=== PATIENT | female | born 1945 | race African-American/Black ===

== ENCOUNTER 2025-07-01 10:59 | Outpatient (AMB) | payer MEDICARE, SELFPAY ==
--- OUTSIDE RECORDS SUMMARY | 2025-06-29 14:16 | XMS_ITS | Encounter Summary ---
Author Organization [facility] Address [address] [place] [address] Care Team Providers Care Cad Drafter Name Role Phone Paola Walsh MD Primary Care Provider [phone] Reason for Referral * Consultation (Routine) - Authorized Specialty Diagnoses / Procedures Referred By Quincy singh Referred To Contact Cardiology Diagnoses Shortness of breath Nimesh Yeh MD [address] [place] [address] Phone: tel: fax: [facility] [address] [facility] [address] [place] [address] Phone: tel: fax: Referral ID Status Reason Start Date Expiration Date Visits Requested Visits Authorized [id number] Authorized Specialty Services Required 06/30/2026 1 1 Reason for Visit * Reason Comments Shortness of Breath Encounter Details Date Type Department Care Team ([facility] st Contact Info) Description 06/29/2025 2:16 PM EST - 06/30/2025 2:55 AM EST Emergency [facility] Emergency [address] [place] [id number] Ernestina Zheng MD [address] [place] [address] Nimesh Yeh MD [address] [place] [phone] Shortness of breath (Primary Dx); Moderate persistent asthma with exacerbation; Chronic cough; Itching sensation of throat; Globus sensation; SOWMYA (obstructive sleep apnea); Elevated troponin; COPD exacerbation ([facility] V24, [facility] V28) Discharge Disposition: Home or Self Care Social History Tobacco Use Types Packs/Day Years Used Date Smoking Tobacco: Never Smokeless Tobacco: Never Alcohol Use Standard Drinks/Week Comments No 0 (1 standard drink = 0.6 oz pur e alcohol) Housing Instability Answer Date Recorde d Are you worried that in the next 2 months you may not have stable housing? No 04/29/2025 Food Access & Nutrition Answer Date Rec orded Do you have access to a vari ety of food including fruits and vegetables? Yes 04/29/2025 Access to Healthcare Answer Date Record ed Within the last 3 months, sasha larios many times did you visit the emergency department for your medical care? 2 04/29/2025 Health Literacy Answer Date Recorded How often do you need to hav e someone help you when you read instructions, pamphlets, or other written material from your doctor or pharmacy? Sometimes 04/29/2025 Caregiver: How often do you need to have someone help you when you read instructions, pamphlets, or other written material from your doctor or pharmacy? Not on file 04/29/2025 Financial Risk Answer Date Recorded How hard is it for you to pa y for the very basics like food, housing, medical care, and air conditioning / heating? Not very hard 04/29/2025 Transportation Answer Date Recorded Has the lack of transportati on kept you from meetings, work, or from getting things needed for daily living? No Has the lack of transportati on kept you from medical appointments or from getting medications? No 04/29/2025 Social Isolation Answer Date Recorded How often do you feel lonely or isolated from th ose around you? Never 04/29/2025 Food Risk Answer Date Recorded Within the past 12 months we worried whether our food would run out before we got money to buy more. Never true 04/29/2025 Within the past 12 months th e food we bought just didn't last and we didn't have money to get more. Never true 04/29/2025 Dependent Care Answer Date Recorded Do you need help finding or paying for care for your loved ones. For example, child advocate or elderly care for an older adult? No 04/29/2025 Education Answer Date Recorded Do you think completing more education or training, like finishing a GED, going to college, or learning a trade, would be helpful for you? N/A 04/29/2025 Employment and Income Answer Date Recor ded During the last four weeks, have you been actively looking for work? No 04/29/2025 Living Situation Answer Date Recorded What is your living situation? Unrecognized valu e 04/29/2025 Comments No Sex and Gender Information Value Date Recorded Sex Assigned at Not on file Legal Sex Female 11:58 PM EST Gender Identity Not on file Sexual Orientation Not on file documented as of this encounter Last Filed Vital Signs Vital Sign Reading Time Taken Comments Blood Pressure 137/77 06/30/2025 2:41 AM EST Pulse 79 06/30/2025 2:41 AM EST Temperature 36.8 C (98.3 F) 06/30/2025 2:41 AM EST Respiratory Rate 20 06/30/2025 2:41 AM EST Oxygen Saturation 99% 06/30/2025 2:41 AM EST Inhaled Oxygen Concentration - - Weight 77.1 kg (170 lb) 06/29/2025 2:13 PM EST Height 152.4 cm (5') 06/29/2025 2:13 PM EST Body Mass Index 33.2 06/29/2025 2:13 PM EST documented in this encounter Discharge Instructions * Discharge Instructions* Nimesh Yeh MD - 06/30/2025 1:10 AM EST Has follow-up with cardiology for management and evaluation of your elevated cardiac enzymes. * Attachments The following attachments cannot be sent through Care Everywhere. * Avoiding COPD Triggers: Video (Indian) * Asthma: General Info (Indian) * Cough (Indian) documented in this encounter Medications at Time of Discharge albuterol HFA (PROAIR HFA ; PROVENTIL HFA ; VENTOLIN HFA) 90 mcg/actuation inhaler INHALE 2 PUFFS BY MOUTH 4 TIMES A DAY NEEDED FOR COUGHING OR WHEEZING 18 g 11 04/29/2025 azithromycin (ZITHROMAX) 250 mg tablet Take 2 tablets (500 mg total) by mouth 1 (one) time each day for 1 day, THEN 1 tablet (250 mg total) 1 (one) time each day for 4 days. 6 each 06/30/2025 5 cholecalciferol (VITAMIN D-3) 50 mcg (2,000 unit) tablet 2,000 Units. 03/08/2011 cyanocobalamin, vitamin B-12, 1,000 mcg capsule Take 1,000 mg by mouth daily. fluticasone propionate (FLONASE) 50 mcg/actuation nasal spray Administer 1 spray into each nostril 1 (one) time each day. Shake gently. Before first use, prime pump. After use, clean tip and replace cap. 16 g 06/30/2025 5 hydroCHLOROthiaz chidi 12.5 mg tablet Take 1 tablet (12.5 mg total) by mouth 1 (one) time each day. 90 each 3 04/30/2025 latanoprost (XALATAN) 0.005 % ophthalmic solution Place 1 Drop into both eyes 2 times daily. 05/17/2021 levothyroxine (SYNTHROID, LEVOTHROID) 50 mcg tablet Take 1 tablet (50 mcg total) by mouth 1 (one) time each day. 90 tablet 2 05/21/2025 magnesium oxide 400 mg magnesium capsule Take 1 capsule by mouth 1 (one) time each day. 90 capsule 3 05/21/2025 omega-3 acid ethyl esters (LOVAZA) 1 gram capsule Take 1,000 mg by mouth daily. predniSONE (DELTASONE) 20 mg tablet Take 1 tablet (20 mg total) by mouth 2 (two) times a day for 4 days. See instructions. 8 tablet 06/30/2025 5 Rocklatan 0.02-0.005 % drops PLACE 1 DROP IN EACH EYE AT BEDTIME 05/22/2025 rosuvastatin (CRESTOR) 10 mg tablet Take 1 tablet (10 mg total) by mouth at bedtime. 90 tablet 1 04/02/2025 timolol (TIMOPTIC) 0.5 % ophthalmic solution INSTILL ONE DROP INTO THE RIGHT EYE IN THE MORNING 06/10/2025 valsartan (DIOVAN) 320 mg tablet Take 1 tablet (320 mg total) by mouth 1 (one) time each day. 90 tablet 3 05/21/2025 Wixela Inhub 250-50 mcg/dose diskus inhaler INHALE ONE PUFF BY MOUTH TWICE A DAY 60 each 07/01/2025 documented as of this encounter Ordered Prescriptions Prescription Sig Dispense Quantity Refills Last Filled Start Date End Date fluticasone propionate (FLONASE) 50 mcg/actuation nasal spray Administer 1 spray into each nostril 1 (one) time each day. Shake gently. Before first use, prime pump. After use, clean tip and replace cap. 16 g 06/30/2025 5 predniSONE (DELTASONE) 20 mg tablet Take 1 tablet (20 mg total) by mouth 2 (two) times a day for 4 days. See instructions. 8 tablet 06/30/2025 5 azithromycin (ZITHROMAX) 250 mg tablet Take 2 tablets (500 mg total) by mouth 1 (one) time each day for 1 day, THEN 1 tablet (250 mg total) 1 (one) time each day for 4 days. 6 each 06/30/2025 5 documented in this encounter Discharge Disposition Disposition Code Departure Means Destination Comment s Home or Self Care documented in this encounter Progress Notes * Nimesh Yeh MD - 06/30/2025 1:17 AM EST ED Course as of 06/30/25 0117 Mon Jun 29, 2025 1533 12-Lead ECG 06/29/25 14:17:43 on my read NSR, regular, rate 81, normal intervals, no EVER/D, non-specific T wavechanges, compared to 03/20/25 no significant change [RG] 1647 XR Chest 1 View On my read no consolidations, effusions, or edema read by radiology as IMPRESSION: FINDINGS/IMPRESSION: Stable cardiomediastinal contours. No consolidation or congestive heart failure. Postsurgical changes right shoulder. [RG] 1647 Per RN pt with improved wheezing after first neb but increased secretions and coughing after second, she will hold nebs. Ordered glycopyrrolate, protonix [RG] 1711 Patient updated and re-evaluated, she has some ongoing wheezing although improved. She states hard to determine if coughing/mucus was due to nebulizer or coincidental as she has been having these episodes. Discussed switching to just albuterol as she uses at home, she would like to try duoneb she already has. RN updated. [RG] 1951 Respiratory virus panel molecular study Negative [RG] 1951 TROPONIN I, HIGH SENSITIVITY(!): 92 Elevated, new, will trend [RG] 1951 Basic Metabolic Panel (BMP) WNL [RG] 1951 CBC(!) WNL [RG] 2008 RN requested pt evaluation due to episodes of patient feeling more short of breath and worse coughing as well as severe itching in throat, requesting benadryl which was ordered. In to see patient who shakes her head when asked about symptoms, daughter at bedside states she is having trouble breathing, RN states she placed on 2L NC for comfort, has not had any hypoxia. Began to auscultate to re-evaluate wheezing when pt suddenly states she could not breathe and grasping her throat, shook her head when asked to describe how she was feeling, there was no apnea or change in mental status, O2sat remained normal, episode resolved within a minute, pt's lung sounds have improved significantly. Had extensive discussion with patient and her daughter about elevated trop, plan to trend, need forhospitalization given elevated trop and episodes, will add CT soft tissue neck due to feeling of blockage, possible etiologies of symptoms, possible role of post-nasal drip, anxiety/panic attacks, laryngospasm. Ordered CT soft tissue neck, tessalon pearles, hydroxyzine, and robaxin. [RG] 2051 Patient signed out to Dr. Yeh pending additional evaluation, BP management, plan for admission. [RG] 2207 CT soft tissue neck with contrast Comparison: None provided Findings: The visualized intracranial contents are unremarkable. No prevertebral fluid. Epiglottis is within normal limits. Pharyngeal mucosal space and parapharyngeal fat are normal. Salivary glands are within normal limits. No sialoliths. Multinodular goiter. Visualized lung apices are clear. No acute fractures. IMPRESSION: Multinodular goiter. This document has been electronically signed by: Keisha Chadwick MD on 06/29/2025 21:16:34 [JL] 2313 Reassessed patient and she appears to be better slightly better long discussion with daughter which her symptoms seem to be exacerbation of postnasal drip. She has had extensive workup with pulmonology she states she has not been taking her antihistamine. Although this troponin elevation is new for her. She does have a history of questionable pulmonary hypertension but no prior history of troponin elevation. She has no chest pain per se and her EKG she has no significant changes. She has normal renal function. [JL] 2314 2nd troponin is trending down. Will repeat. And obtain BNP, possible 2ndary to atrial stretch of Pulm HTN [JL] 2315 Given IV hydralzaine for BP control [JL] 2315 Symptoms have been going on for quite a while. And she has had a ENT workup as well. Which didnot show anything she has not had a swallow study. [JL] 2359 Troponin remains elevated despite a negative BNP and also normal renal function. Will admit for observation trend troponin possible echocardiogram this may represent part of her pulmonary hypertension. EKG was did not show any significant ischemic changes. [JL] e Jun 30, 2025 0023 Discussed the case with cardiology Dr. Daniel feels the troponin is not not necessarily concerning for NSTEMI given her clinical picture. Will obtain a D- dimer hopefully this will be negative when age-adjusted at this point do not think she is a candidate for anticoagulation given her history of intraparenchymal hemorrhage. [JL] 0105 Age adjusted ddimer =390. Likely negateive pt will be d/c'd home with close cardiology followup [JL] 0107 Symptoms seem to be related to postnasal drip she is ambulating well now without any desaturations. Will start her on a short course of steroids. Will give her Flonase as well and have her follow-up with cardiology. [JL] ED Course User Index [JL] Nimesh Yeh MD [RG] Ernestina Zheng MD Clinical Impressions as of 06/30/25 0117 Shortness of breath Moderate persistent asthma with exacerbation Chronic cough Itching sensation of throat Globus sensation SOWMYA (obstructive sleep apnea) Elevated troponin COPD exacerbation (CMS/HCC V24, CMS/HCC V28) Discharge 1. Shortness of breath 2. Moderate persistent asthma with exacerbation 3. Chronic cough 4. Itching sensation of throat 5. Globus sensation 6. SOWMYA (obstructive sleep apnea) 7. Elevated troponin 8. COPD exacerbation ([facility] V24, [facility] V28) Procedures * Edilma Hunter RN - 06/29/2025 4:19 PM EST Pt medicated per OCT - started to have very coarse cough after 2nd breathing treatment. Provider made aware. LS are coarse throughout, mucous is whitish / yellow on assessment. Pt sat 100% on RA, Pt feels as though the phlegm is stuck in her thraot, voice is horse - Pt states throat is sore post coughing episode. Pt BP 178/96, pulse 90, RR 20, Sat 100% RA * Alem Ga RN - 06/29/2025 2:09 PM EST Pt to ED reports sorethroat, cough and difficulty breathing,. Reports has gotten worse over last 2 days. Pt reports fee;ls as if needs to get phlegm up but unable to do so * Ernestina Zheng MD - 06/29/2025 2:05 PM EST HPI Chief Complaint Patient presents with Shortness of Breath Patient with history, per PCP note 05/21/25 of parietal IPH, HTN, HLD, COPD, hypothyroidism, left kidney mass, spinal stenosis, lumbar radiculopathy, asthma, GERD, goiter presents reporting cough, shortness of breath, sore throat, and mucus in her throat which makes her gag for years as well as itching in her throat, feeling that she is suffocating when she lies flat and sleeps. She notes she has seen ENT, research & analytics manager, and pulmonology who cannot find anything but has not seen GI. She does not feelshe has acid reflux symptoms. Patient notes that all symptoms became worse last night, she has had sleep study, was diagnosed with sleep apnea, stopped using CPAP because she felt the mask was more sim ffocating and eventually insurance took it back. Patient reports using albuterol inhaler and nebulizer as needed, no recent new or different cold or flu symptoms, chest pain, belly pain, nausea, vomiting. Daughter at bedside states pt has daily inhaler but unsure if she is using it, pt initially states she is not then clarifies she is. She also reports she had been taking allergy medication but thinks she stopped it but is unsure, has a lot of nasal congestion, chronic cough is progressively worsening. History provided by: Medical records, patient and relative staff interpreter used: No Fabricio Coma Scale Score: 15 Patient History Medical History[1] Surgical History[2] Family History[3] Social History Tobacco Use Smoking status: Never Smokeless tobacco: Never Substance Use Topics Alcohol use: No Drug use: No Review of Systems Review of Systems Physical Exam ED Triage Vitals [06/29/25 1413] Temp Heart Rate Resp BP 37 ??C (98.6 ??F) 86 20 (!) 166/105 SpO2 Temp Source Heart Rate Source Patient Position 99 % Oral -- Sitting BP Location FiO2 (%) -- -- Physical Exam Vitals and nursing note reviewed. Constitutional: General: She is not in acute distress. Appearance: Normal appearance. She is not ill-appearing. HENT: Mouth/Throat: Mouth: Mucous membranes are moist. Pharynx: Oropharynx is clear. No pharyngeal swelling, oropharyngeal exudate or posterior oropharyngeal erythema. Cardiovascular: Rate and Rhythm: Normal rate and regular rhythm. Heart sounds: Normal heart sounds. Pulmonary: Effort: Pulmonary effort is normal. No tachypnea or respiratory distress. Breath sounds: Wheezing present. Comments: Diffuse moderate to severe expiratory wheezes, mild inspiratory Abdominal: Palpations: Abdomen is soft. Tenderness: There is no abdominal tenderness. Neurological: Mental Status: She is alert. ED Course & MDM Medical Decision Making Ddx: Asthma exacerbation, GERD/esophagitis, post-nasal drip, untreated SOWMYA, viral syndrome, seasonal vs environmental allergies, less likely pneumonia, ACS, CHF, other acute pulmonary pathology Patient is chronically but not acutely ill-appearing with vitals hypertensive to 166/104 and otherwise WNL on RA on arrival and normal cardiac and abdominal exams, pulmonary exam with diffuse moderate to severe expiratory wheezes, mild inspiratory wheeze, otherwise normal, normal appearing oropharynx, moist mucus membranes. Will obtain EKG, trop, basic labs, CXR, respiratory panel. Will treat with duo-neb, IV Mg, solu-medrol. Will ambulate with pulse ox. Did consider and discuss with pt and daughter imaging of head given daughter report of ongoing headaches however pt states headache is mild,they had MRI recently, she has no new symptoms, decided together that this is necessary at this time. Per d/c summary from admission for IP, BP goal at home is 130/80 so will give dose of home valsartan and re-evaluate BP. Discussed plan, if work-up is reassuring, passes ambulation trial and wheezing resolves and she is discharged strong recommendation to get new CPAP, nasal only may be better tolerated, due to risks of untreated SOWMYA as well as evaluation by GI for possible GERD role. ED Course as of 06/29/252 SunJun 29, 2025 1533 12-Lead ECG 06/29/25 14:17:43 on my read NSR, regular, rate 81, normal intervals, no EVER/D, non-specific T wavechanges, compared to 03/20/25 no significant change [RG] 1647 XR Chest 1 View On my read no consolidations, effusions, or edema read by radiology as IMPRESSION: FINDINGS/IMPRESSION: Stable cardiomediastinal contours. No consolidation or congestive heart failure. Postsurgical changes right shoulder. [RG] 1647 Per RN pt with improved wheezing after first neb but increased secretions and coughing after second, she will hold nebs. Ordered glycopyrrolate, protonix [RG] 1711 Patient updated and re-evaluated, she has some ongoing wheezing although improved. She states hard to determine if coughing/mucus was due to nebulizer or coincidental as she has been having these episodes. Discussed switching to just albuterol as she uses at home, she would like to try duoneb she already has. RN updated. [RG] 1951 Respiratory virus panel molecular study Negative [RG] 1951 TROPONIN I, HIGH SENSITIVITY(!): 92 Elevated, new, will trend [RG] 1951 Basic Metabolic Panel (BMP) WNL [RG] 1951 CBC(!) WNL [RG] 2008 RN requested pt evaluation due to episodes of patient feeling more short of breath and worse coughing as well as severe itching in throat, requesting benadryl which was ordered. In to see patient who shakes her head when asked about symptoms, daughter at bedside states she is having trouble breathing, RN states she placed on 2L NC for comfort, has not had any hypoxia. Began to auscultate to re-evaluate wheezing when pt suddenly states she could not breathe and grasping her throat, shook her head when asked to describe how she was feeling, there was no apnea or change in mental status, O2sat remained normal, episode resolved within a minute, pt's lung sounds have improved significantly. Had extensive discussion with patient and her daughter about elevated trop, plan to trend, need forhospitalization given elevated trop and episodes, will add CT soft tissue neck due to feeling of blockage, possible etiologies of symptoms, possible role of post-nasal drip, anxiety/panic attacks, laryngospasm. Ordered CT soft tissue neck, tessalon pearles, hydroxyzine, and robaxin. [RG] 2051 Patient signed out to Dr. Yeh pending additional evaluation, BP management, plan for admission. 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 Ernestina Zheng MD 06/29/252152 documented in this encounter Plan of Treatment Upcoming Encounters Date Type Department Care Team (Late st Contact Info) Description 07/24/2025 8:30 AM EST Office Visit Pulmonology - [address] [place] [phone] Angela France MD [address] [place] [address] 09/03/2025 1:00 PM EST Office Visit Internal Medicine - [place] [address] [place] [address] Paola Walsh MD [address] [place] [phone] Scheduled Referrals Name Type Priority Associated Diagnoses Order Schedule Ambulatory referral to Cardiology Outpatient Referral Routine 1 Occurrence s starting 06/30/2025 until 06/30/2026 documented as of this encounter Procedures Procedure Name Priority Date/Time Associated Diagnosis Comments D-DIMER STAT 06/30/2025 12:34 AM EST ECG ANNOTATED 06/30/2025 ECG ANNOTATED 06/30/2025 TROPONIN I HIGH SENSITIVITY STAT 06/29/2025 11:23 PM EST B-TYPE NATRIURETIC PEPTIDE STAT 06/29/2025 11:23 PM EST TROPONIN I HIGH SENSITIVITY STAT 06/29/2025 8:[address] NECK SOFT TISSUE W CONTRAST STAT 06/29/2025 8:36 PM EST RESPIRATORY VIRUS PANEL MOLECULAR STUDY STAT 06/29/2025 3:47 PM EST TROPONIN I HIGH SENSITIVITY STAT 06/29/2025 3:45 PM EST COMPLETE BLOOD COUNT STAT 06/29/2025 3:45 PM EST BASIC METABOLIC PANEL STAT 06/29/2025 3:45 PM EST XR CHEST 1 VIEW STAT 06/29/2025 3:26 PM EST ECG 12-LEAD STAT 06/29/2025 3:17 PM EST documented in this encounter Results * (ABNORMAL) D-dimer, quantitative (06/30/2025 12:34 AM EST) D-Dimer, Quant (D-DU) 327(H) <=230 ng/mL DDU LAB COAGULATION METHOD 06/30/2025 1:02 AM EST [facility] Blood Venous blood specimen / Unknown Venipuncture / Unknown 06/30/2025 12:34 AM EST 06/30/2025 12:48 AM EST Narrative [facility] - 06/30/2025 1:02 AM EST D-Dimer <230 ng/mL (D-Dimer units) is the threshold for exclusion of DVT/PE. D-Dimer may be elevated in: Critically ill, severely infected, trauma patients, DIC, acute CVA, acute FL, unstable angina, AF, old age, , and smoking. D-Dimer may be decreased with: Initiation of heparin therapy and oral anticoagulants. Nimesh Yeh MD LAB BLOOD ORDERABLES Final Result [facility] [address] [place] [address], * ECG-Annotated (06/30/2025) Provider Onbase MD ECG ORDERABLES Final Result * ECG-Annotated (06/30/2025) us Provider Onbase MD ECG ORDERABLES Final Result * B-type natriuretic peptide (06/29/2025 11:23 PM EST) BNP 86 <=100 pcg/mL LAB CHEMISTRY METHOD 06/29/2025 11:58 PM EST [facility] Blood Venous blood specimen / Unknown Venipuncture / Unknown 06/29/2025 11:23 PM EST 06/29/2025 11:27 PM EST Nimesh Yeh MD LAB BLOOD ORDERABLES Final Result [facility] [address] [place] [address], [place] [phone] * (ABNORMAL) Troponin I high sensitivity (06/29/2025 11:23 PM EST) [facility] High Sensitivity Troponin I 77(H) <=54 ng/L LAB CHEMISTRY METHOD 06/29/2025 11:49 PM EST [facility] Blood Venous blood specimen / Unknown Venipuncture / Unknown 06/29/2025 11:23 PM EST 06/29/2025 11:27 PM EST Narrative [facility] - 06/29/2025 11:49 PM EST High levels of biotin in samples may falsely decrease hsTroponin values. Use caution when interpreting hsTroponin results in patients taking biotin who exhibit renal impairment (eGFR <60) or in patients taking more than 20 mg/day of biotin. Nimesh Yeh MD LAB BLOOD ORDERABLES Final Result Performing Organization Address [facility] Co de Phone Number [facility] [address] [place] [address], [place] [phone] * (ABNORMAL) Troponin I High Sensitivity (06/29/2025 8:46 PM EST) [facility] High Sensitivity Troponin I 76(H) <=54 ng/L LAB CHEMISTRY METHOD 06/29/2025 9:27 PM EST [facility] Blood Venous blood specimen / Unknown Venipuncture / Unknown 06/29/2025 8:46 PM EST 06/29/2025 8:58 PM EST Narrative [facility] - 06/29/2025 9:27 PM EST High levels of biotin in samples may falsely decrease hsTroponin values. Use caution when interpreting hsTroponin results in patients taking biotin who exhibit renal impairment (eGFR <60) or in patients taking more than 20 mg/day of biotin. us Ernestina Zheng MD LAB BLOOD ORDERABLES Final Resul t ROB [facility] ([facility]) [facility] [address] [place] [address], [place] [phone] * CT Neck Soft Tissue w Contrast (06/29/2025 8:36 PM EST) Anatomical Region Laterality Modality Head and Neck Computed Tomogra phy 06/29/2025 9:16 PM EST Impressions 06/29/2025 9:16 PM EST Multinodular goiter. This document has been electronically signed by: Keisha Chadwick MD on 06/29/2025 21:16:34 Narrative 06/29/2025 9:16 PM EST INDICATION: SOB, cough, globus sensation, eval stricture, stenosis, other acute CT soft tissue neck with contrast Comparison: None provided Findings: The visualized intracranial contents are unremarkable. No prevertebral fluid. Epiglottis is within normal limits. Pharyngeal mucosal space and parapharyngeal fat are normal. Salivary glands are within normal limits. No sialoliths. Multinodular goiter. Visualized lung apices are clear. No acute fractures. Procedure Note Keisha Chadwick MD - 06/29/2025 INDICATION: SOB, cough, globus sensation, eval stricture, stenosis, other acute CT soft tissue neck with contrast Comparison: None provided Findings: The visualized intracranial contents are unremarkable. No prevertebral fluid. Epiglottis is within normal limits. Pharyngeal mucosal space and parapharyngeal fat are normal. Salivary glands are within normal limits. No sialoliths. Multinodular goiter. Visualized lung apices are clear. No acute fractures. IMPRESSION: Multinodular goiter. This document has been electronically signed by: Keisha Chadwick MD on 06/29/2025 21:16:34 us Ernestina Zheng MD IMG CT PROCEDURES Final Result * Respiratory virus panel molecular study (06/29/2025 3:47 PM EST) [facility] Adenovirus Detection by PCR Not Detected Not Detected LAB MICROBIOLOGY METHOD 06/29/2025 5:57 PM [facility] Influenza A PCR Not Detected Not Detected LAB MICROBIOLOGY METHOD 06/29/2025 5:57 PM [facility] Influenza B PCR Not Detected Not Detected LAB MICROBIOLOGY METHOD 06/29/2025 5:57 PM [facility] Coronavirus 229E Not Detected Not Detected LAB MICROBIOLOGY METHOD 06/29/2025 5:57 PM [facility] Coronavirus HKU1 Not Detected Not Detected LAB MICROBIOLOGY METHOD 06/29/2025 5:57 PM [facility] Coronavirus OC43 Not Detected Not Detected LAB MICROBIOLOGY METHOD 06/29/2025 5:57 PM [facility] Coronavirus NL63 Not Detected Not Detected LAB MICROBIOLOGY METHOD 06/29/2025 5:57 PM [facility] Parainfluenza Virus 1 Not Detected Not Detected LAB MICROBIOLOGY METHOD 06/29/2025 5:57 PM [facility] Parainfluenza Virus 2 Not Detected Not Detected LAB MICROBIOLOGY METHOD 06/29/2025 5:57 PM [facility] Parainfluenza Virus 3 Not Detected Not Detected LAB MICROBIOLOGY METHOD 06/29/2025 5:57 PM [facility] Parainfluenza Virus 4 Not Detected Not Detected LAB MICROBIOLOGY METHOD 06/29/2025 5:57 PM [facility] RSV PCR Not Detected Not Detected LAB MICROBIOLOGY METHOD 06/29/2025 5:57 PM [facility] Human Metapneumovirus A and B Not Detected Not Detected LAB MICROBIOLOGY METHOD 06/29/2025 5:57 PM [facility] Rhinovirus/Entero virus Not Detected Not Detected LAB MICROBIOLOGY METHOD 06/29/2025 5:57 PM [facility] Bordetella pertussis Not Detected Not Detected LAB MICROBIOLOGY METHOD 06/29/2025 5:57 PM EST [facility] Bordetella parapertussis Not Detected Not Detected LAB MICROBIOLOGY METHOD 06/29/2025 5:57 PM EST [facility] Mycoplasma pneumo by PCR Not Detected Not Detected LAB MICROBIOLOGY METHOD 06/29/2025 5:57 PM [facility] Chlamydia pneumoniae Not Detected Not Detected LAB MICROBIOLOGY METHOD 06/29/2025 5:57 PM [facility] SARS COV-2 Not Detected Not Detected LAB MICROBIOLOGY METHOD 06/29/2025 5:57 PM [facility] Swab Both anterior nares / Unknown Non-blood Collection / Unknown 06/29/2025 3:47 PM EST 06/29/2025 4:51 PM EST [facility] - 06/29/2025 5:57 PM EST Testing was performed using the [employer] Respiratory Pathogen PCR Assay. All results must be correlated with the clinical findings. Results should not be used as the sole basis for diagnosis. False Negative results may occur from the presence of sequence variants in the region targeted by the assay or the presence of inhibitors. Results may be affected by concurrent antiviral/antimicrobial therapy or levels of organisms that are below the limit of detection. us Ernestina Zheng MD LAB MICROBIOLOGY - GENERAL ORDER NARESH Final Result [facility] [address] [place] [address], * Basic Metabolic Panel (BMP) (06/29/2025 3:45 PM EST) Sodium 141 133 - 145 mmol/L LAB CHEMISTRY METHOD 06/29/2025 6:03 PM [facility] Potassium 4.6 3.5 - 5.5 mmol/L LAB CHEMISTRY METHOD 06/29/2025 6:03 PM EST [facility] Comment:Hemolysis present Chloride 106 96 - 110 mmol/L LAB CHEMISTRY METHOD 06/29/2025 6:03 PM [facility] CO2 31 21 - 32 mmol/L LAB CHEMISTRY METHOD 06/29/2025 6:03 PM [facility] Anion Gap 4 3 - 11 LAB CHEMISTRY METHOD 06/29/2025 6:03 PM [facility] Glucose 83 70 - 100 mg/dL LAB CHEMISTRY METHOD 06/29/2025 6:03 PM [facility] BUN 17 5 - 25 mg/dL LAB CHEMISTRY METHOD 06/29/2025 6:03 PM [facility] Creatinine 0.81 0.50 - 1.10 mg/dL LAB CHEMISTRY METHOD 06/29/2025 6:03 PM [facility] eGFR 74 >=60 mL/min/1. 73m2 LAB CHEMISTRY METHOD 06/29/2025 6:03 PM [facility] Comment:Calculation based on the Chronic Kidney Disease Epidemiology Collaboration (CKD-EPI) equation refit without adjustment for race. BUN/Creatinine Ratio 21.0 LAB CHEMISTRY METHOD 06/29/2025 6:03 PM [facility] Calcium 9.7 8.5 - 10.5 mg/dL LAB CHEMISTRY METHOD 06/29/2025 6:03 PM [facility] Blood Venous blood specimen / Unknown Venipuncture / Unknown 06/29/2025 3:45 PM EST 06/29/2025 4:53 PM EST us Ernestina Zheng MD LAB BLOOD ORDERABLES Final Resul t [facility] [address] [place] [address], * (ABNORMAL) Troponin I High Sensitivity (06/29/2025 3:45 PM EST) High Sensitivity Troponin I 92(H) <=54 ng/L LAB CHEMISTRY METHOD 06/29/2025 5:38 PM [facility] Blood Venous blood specimen / Unknown Venipuncture / Unknown 06/29/2025 3:45 PM EST 06/29/2025 4:53 PM EST Narrative [facility] - 06/29/2025 5:38 PM EST High levels of biotin in samples may falsely decrease hsTroponin values. Use caution when interpreting hsTroponin results in patients taking biotin who exhibit renal impairment (eGFR <60) or in patients taking more than 20 mg/day of biotin. us Ernestina Zheng MD LAB BLOOD ORDERABLES Final Resul t [facility] [address] [place] [address], * (ABNORMAL) CBC (06/29/2025 3:45 PM EST) WBC 7.8 4.8 - 10.8 K/mcL LAB HEMETOLOGY METHOD 06/29/2025 5:05 PM [facility] RBC 4.60 3.80 - 4.80 M/mcL LAB HEMETOLOGY METHOD 06/29/2025 5:05 PM [facility] Hemoglobin 13.2 11.5 - 16.0 g/dL LAB HEMETOLOGY METHOD 06/29/2025 5:05 PM [facility] Hematocrit 40.1 35.0 - 47.0 % LAB HEMETOLOGY METHOD 06/29/2025 5:05 PM [facility] MCV 87.7 79.0 - 98.0 FL LAB HEMETOLOGY METHOD 06/29/2025 5:05 PM [facility] MCH 28.9 27.0 - 32.0 pcg LAB HEMETOLOGY METHOD 06/29/2025 5:05 PM [facility] MCHC 32.9 32.0 - 37.0 g/dL LAB HEMETOLOGY METHOD 06/29/2025 5:05 PM EST [facility] RDW 13.9 11.0 - 15.0 % LAB HEMETOLOGY METHOD 06/29/2025 5:05 PM EST [facility] Platelets 222 130 - 400 K/mcL LAB HEMETOLOGY METHOD 06/29/2025 5:05 PM EST [facility] MPV 12.0(H) 7.0 - 11.0 FL LAB HEMETOLOGY METHOD 06/29/2025 5:05 PM EST [facility] NRBC 0.0 <1.0 % LAB HEMETOLOGY METHOD 06/29/2025 5:05 PM EST [facility] NRBC Absolute 0.00 <0.10 K/mcL LAB HEMETOLOGY METHOD 06/29/2025 5:05 PM EST [facility] Blood Venous blood specimen / Unknown Venipuncture / Unknown 06/29/2025 3:45 PM EST 06/29/2025 4:53 PM EST us Ernestina Zheng MD LAB BLOOD ORDERABLES Final Resul t [facility] [address] [place] [address], * XR Chest 1 View (06/29/2025 3:26 PM EST) Anatomical Region Laterality Modality Body Radiographic Yanna ging 06/29/2025 3:55 PM EST Impressions 06/29/2025 3:55 PM EST FINDINGS/IMPRESSION: Stable cardiomediastinal contours. No consolidation or congestive heart failure. Postsurgical changes right shoulder. -------- FINAL REPORT -------- Dictated By: Sameera Teran Dictated Date: 06/29/2025 15:55 ET Assigned Physician: Sameera Teran Reviewed and Electronically Signed By: Sameera Teran Signed Date: 06/29/2025 15:55 ET Workstation ID: [id number] Transcribed By: Self Edit Transcribed Date: 06/29/2025 15:55 ET Narrative 06/29/2025 3:55 PM EST XR CHEST 1 VIEW INDICATION: SOB TECHNIQUE: XR CHEST 1 VIEW COMPARISON: None Procedure Note Sameera Teran MD - 06/29/2025 XR CHEST 1 VIEW INDICATION: SOB TECHNIQUE: XR CHEST 1 VIEW COMPARISON: None IMPRESSION: FINDINGS/IMPRESSION: Stable cardiomediastinal contours. No consolidationor congestive heart failure. Postsurgical changes right shoulder. -------- FINAL REPORT -------- Dictated By: Sameera Teran Dictated Date: 06/29/2025 15:55 ET Assigned Physician: Sameera Teran Reviewed and Electronically Signed By: Sameera Teran Signed Date: 06/29/2025 15:55 ET Workstation ID: [id number] Transcribed By: Self Edit Transcribed Date: 06/29/2025 15:55 ET Ernestina Zheng MD IMG XR PROCEDURES Final Result * 12-Lead ECG (06/29/2025 3:17 PM EST) Ventricular Rate ECG 81 BPM GEMUSE Atrial Rate 81 BPM GEMUSE P-R Interval 148 ms GEMUSE QRS Duration 80 ms GEMUSE Q-T Interval 370 ms GEMUSE QTc 429 ms GEMUSE P Wave [place] 37 degrees GEMUSE R [place] 15 degrees GEMUSE T [place] 42 degrees GEMUSE ECG Interpretation Normal sinus rhythm Minimal voltage criteria for LVH, may be normal variant ( Sokolow-Vallejo ) Nonspecific T wave abnormality Abnormal ECG When compared with ECG of 20-MAR-2025 16:58, QT has shortened Confirmed by RAZA TURNER ([id number]) on 06/29/2025 11:49:03 PM GEMUSE 06/29/2025 3:17 PM EST 06/29/2025 11:49 PM EST us Ernestina Zheng MD ECG ORDERABLES Final Result GEMUSE documented in this encounter Visit Diagnoses Diagnosis Shortness of breath- Primary Moderate persistent asthma with exacerbation Unspecified asthma, with exacerbation Chronic cough Cough Itching sensation of throat Globus sensation Gastrointestinal malfunction arising from mental factors SOWMYA (obstructive sleep apnea) Obstructive sleep apnea (adult) (pediatric) Elevated troponin Other abnormal blood chemistry COPD exacerbation ([facility] V24, [facility] V28) Obstructive chronic bronchitis with exacerbation documented in this encounter Administered Medications Inactive Administered Medications - up to 3 most recent administrations Medication Order MAR Action Action Date Dose Rate Site benzonatate (TESSALON) capsule 100 mg 100 mg, oral, Once, On Sun06/29/25 at 2010, For 1 dose, Do not crush or chew. Given 06/29/2025 8:23 PM EST 100 mg diphenhydrAMINE (BENADRYL) injection 25 mg 25 mg, intravenous, Once, On Sun06/29/25 at 1953, For 1 dose Given 06/29/2025 7:59 PM EST 25 mg glycopyrrolate (ROBINUL) injection 0.1 mg 0.1 mg, intravenous, Once, On Sun06/29/25 at 1648, For 1 dose Given 06/29/2025 5:29 PM EST 0.1 mg iopamidoL (ISOVUE-370) 370 mg iodine /mL (76 %) injection 90 mL 90 mL, intravenous, Once in imaging, Starting on Sun06/29/25 at 2030, For 1 dose Given 06/29/2025 8:32 PM EST 90 mL ipratropium-albuteroL (DUONEB) 0.5-2.5 mg/3 mL nebulizer solution 3 mL 3 mL, nebulization, Every 20 min, First dose on Sun06/29/25 at 1509, For 3 doses Given 06/29/2025 5:28 PM EST 3 mL Given 06/29/2025 3:58 PM EST 3 mL Given 06/29/2025 3:37 PM EST 3 mL magnesium sulfate 2 gram/50 mL (4 %) IVPB 2 g 2 g, intravenous, at 25 mL/hr, Administer over 2 Hours, Once, On Sun06/29/25 at 1509, For 1 dose New Bag 06/29/2025 3:46 PM EST 2 g 25 mL/hr methocarbamoL (ROBAXIN) tablet 1,000 mg 1,000 mg, oral, Once, On Sun06/29/25 at 2010, For 1 dose Given 06/29/2025 8:23 PM EST 1,000 mg methylPREDNISolone sodium succ (SOLU-Medrol) injection 125 mg 125 mg, intravenous, Once, On Sun06/29/25 at 1509, For 1 dose, Reconstitute each 125 mg vial with 2 mL sterile water for injection to a concentration of 62.5 mg/mL. Given 06/29/2025 3:45 PM EST 125 mg pantoprazole (PROTONIX) injection 40 mg 40 mg, intravenous, Administer over 2 Minutes, Once, On Sun06/29/25 at 1650, For 1 dose, Pantroprazole - IV push: Reconstitute powder for injection with 10 mL NS; final concentration: 4 mg/mL., Indication for IV Push Pantoprazole? Stress Ulcer Prophylaxis for patients with STRICT NPO status AND contraindication to H2RA Given 06/29/2025 5:29 PM EST 40 mg sodium chloride 0.9 % bolus 500 mL 500 mL, intravenous, at 500 mL/hr, Administer over 1 Hours, Once, On Sun06/30/25 at 0024, For 1 dose New Bag 06/30/2025 1:24 AM EST 500 mL 500 mL/hr sodium chloride 0.9 % flush 10 mL 10 mL, intravenous, Once, On Sun06/29/25 at 2031, For 1 dose Given 06/29/2025 8:32 PM EST 10 mL valsartan (DIOVAN) tablet 80 mg 80 mg, oral, Once, On Sun06/29/25 at 1507, For 1 dose Given 06/29/2025 4:39 PM EST 80 mg documented in this encounter Active and Recently Administered Medications Times are shown in EST. Scheduled Medication Order 06/28/2025 06/29/2025 06/30/2025 benzonatate (TESSALON) capsule 100 mg (COMPLETED) 100 mg, oral, Once, On Sun06/29/25 at 2010, For 1 dose, Do not crush or chew. 2022 (Given - Provider: Samantha Trevino RN) diphenhydrAMINE (BENADRYL) injection 25 mg (COMPLETED) 25 mg, intravenous, Once, On Sun06/29/25 at 1953, For 1 dose 1958 (Given - Provider: Samantha Trevino RN) glycopyrrolate (ROBINUL) injection 0.1 mg (COMPLETED) 0.1 mg, intravenous, Once, On Sun06/29/25 at 1648, For 1 dose 1729 (Given - Provider: Edilma Hunter, JOSÉ) hydrALAZINE (APRESOLINE) injection 10 mg 10 mg, intravenous, Once, On Sun06/29/25 at 2209, For 1 dose 232 (Not Given - Provider: Samantha Trevino, JOSÉ - Reason: Other - Comment: Bp lower than previous) hydrOXYzine (VISTARIL) injection 50 mg 50 mg, intramuscular, Once, On Sun06/29/25 at 2009, For 1 dose 2321 (Not Given - Provider: Samantha Trevino, JOSÉ - Reason: Other - Comment: Anxiety subsided no longer needed /not delivered from pharmacy) iopamidoL (ISOVUE-370) 370 mg iodine /mL (76 %) injection 90 mL (COMPLETED) 90 mL, intravenous, Once in imaging, Starting on Sun06/29/25 at 2030, For 1 dose 2031 (Given - Provider: Jenny Geronimo) ipratropium-albuteroL (DUONEB) 0.5-2.5 mg/3 mL nebulizer solution 3 mL (COMPLETED) 3 mL, nebulization, Every 20 min, First dose on Sun06/29/25 at 1509, For 3 doses 1537 (Given - Provider: Edilma Hunter RN)1558 (Given - Provider: Edilma Hunter RN - Comment: exp wheeze)1728 (Given - Provider: Edilma Hunter RN - Comment: Pt having coughing fit after 2nd tx, reassessed and wants 3rd tx) magnesium sulfate 2 gram/50 mL (4 %) IVPB 2 g (COMPLETED) 2 g, intravenous, at 25 mL/hr, Administer over 2 Hours, Once, On Sun06/29/25 at 1509, For 1 dose 1546 (New Bag - Provider: Edilma Hunter RN)1750 (Stopped - Provider: Edilma Hunter RN) methocarbamoL (ROBAXIN) tablet 1,000 mg (COMPLETED) 1,000 mg, oral, Once, On Sun06/29/25 at 2009, For 1 dose 2022 (Given - Provider: Samantha Trevino, JOSÉ) methylPREDNISolone sodium succ (SOLU-Medrol) injection 125 mg (COMPLETED) 125 mg, intravenous, Once, On Sun06/29/25 at 1509, For 1 dose, Reconstitute each 125 mg vial with 2 mL sterile water for injection to a concentration of 62.5 mg/mL. 1545 (Given - Provider: Edilma Hunter, JOSÉ) pantoprazole (PROTONIX) injection 40 mg (COMPLETED) 40 mg, intravenous, Administer over 2 Minutes, Once, On Sun06/29/25 at 1650, For 1 dose, Pantroprazole - IV push: Reconstitute powder for injection with 10 mL NS; final concentration: 4 mg/mL., Indication for IV Push Pantoprazole? Stress Ulcer Prophylaxis for patients with STRICT NPO status AND contraindication to H2RA 1729 (Given - Provider: Edilma Hunter, JOSÉ) sodium chloride 0.9 % bolus 500 mL (COMPLETED) 500 mL, intravenous, at 500 mL/hr, Administer over 1 Hours, Once, On Sun06/30/25 at 0024, For 1 dose 0124 (New Bag - Provider: Samantha Trevino RN)0238 (Stopped - Provider: Samantha Trevino RN) sodium chloride 0.9 % flush 10 mL (COMPLETED) 10 mL, intravenous, Once, On Sun06/29/25 at 203, For 1 dose 2031 (Given - Provider: Jenny Geronimo) valsartan (DIOVAN) tablet 80 mg (COMPLETED) 80 mg, oral, Once, On Sun06/29/25 at 1507, For 1 dose 1639 (Given - Provider: Edilma Hunter, JOSÉ) documented in this encounter Orders Medications Ordered That Jose David ht Not Have Been Administered Count Last Ordered Date First Ordered Date hydrALAZINE (APRESOLINE) injection 10 mg 1 06/29/2025 hydrOXYzine (VISTARIL) injection 50 mg 1 Nursing Count Last Ordered Date First Orde red Date CHECK PULSE OXIMETRY WHILE AMBULATING 1 documented in this encounter Additional Health Concerns Infection Onset Date Last Indicated Resolved Time Respiratory Rule-Out 06/29/2025 06/29/2025 025 5:57 PM EST COVID-19 Rule-Out 06/29/2025 06/29/2025 06/29/2025 5:57 PM EST Assessment Noted Time PHQ-9 Depression Total Score: 4 03/10/20 25 8:14 AM EDT documented as of this encounter Care Teams Cad Drafter Relationship Specialty Start Date End Date Paola Walsh MD [address] [facility] [address] [place] [phone] PCP - General Internal Medicine 07/09/24 documented as of this encounter
--- OUTSIDE RECORDS SUMMARY | 2025-06-30 08:45 | XMS_ITS | Encounter Summary ---
[facility] Address [address] [place] [address] Care Team Providers Care Tile Mechanic Name Role Phone Paola Walsh MD Primary Care Provider [phone] Reason for Referral * Imaging (Routine) - Pending Review Specialty Diagnoses / Procedures Referred By Quincy singh Referred To Contact Radiology Diagnoses Hemorrhagic stroke (CMS/HCC V24, CMS/HCC V28) Procedures MR Brain wo and w Contrast Nhan Samaniego MD [address] [place] [address] Phone: tel: fax: [facility] Referral ID Status Reason Start Date Expiration Date V isits Requested Visits Authorized [id number] Pending Review 06/30/2025 06/30/2026 1 1 Reason for Visit * Reason Comments Follow-up Hemorrahagic Stroke Encounter Details Date Type Department Care Team (Late st Contact Info) Description 06/30/2025 8:45 AM EST Office Visit Neurosurgery [facility] [address] [place] [address] Nhan Samaniego MD [address] [place] [address] Hemorrhagic stroke (CMS/HCC V24, CMS/[facility] V28) (Primary Dx) Social History Tobacco Use Types Packs/Day Years Used Date Smoking Tobacco: Never Smokeless Tobacco: Never Tobacco Cessation:Counseling Given: Not Answered Alcohol Use Standard Drinks/Week Comments No 0 [...] Record ed Within the last 3 months, ho w many times did you visit the emergency [...] care for your loved ones. For example, early childhood teacher assistant or elderly care for an older adult? [...] Sign Reading Time Taken Comments Blood Pressure - - Pulse - - Temperature - - Respiratory Rate - - Oxygen Saturation - - Inhaled Oxygen Concentration - - Weight 77.1 kg (170 lb) 06/30/2025 8:59 AM EST Height 152.4 cm (5') 06/30/2025 8:59 AM EST Body Mass Index 33.2 06/30/2025 8:59 AM EST documented in this encounter Plan of Treatment Upcoming Encounters Date Type Department Care Team (Late st Contact Info) Description 07/24/2025 8:30 AM EST Office Visit Pulmonology - [address] [phone] Angela France MD [address] [place] [phone] 09/03/2025 1:00 PM EST Office Visit Internal Medicine - [address] [phone] Paola Walsh MD [address] [place] [phone] Scheduled Orders Name Type Priority Associated Diagnoses Orde r Schedule MR Brain wo and w Contrast Imaging Routine Hemorrhagic stroke ([facility] V24, [facility] V28) Expected: 09/30/2025, Expires: 06/30/2026 documented as of this encounter Visit Diagnoses Diagnosis Hemorrhagic stroke ([facility] V24, [facility] V28)- Primary Intracerebral hemorrhage documented in this encounter Historical Medications * This list may reflect changes made after this encounter. timolol (TIMOPTIC) 0.5 % ophthalmic solution INSTILL ONE DROP INTO THE RIGHT EYE IN THE MORNING 06/10/2025 Rocklatan 0.02-0.005 % drops PLACE 1 DROP IN EACH EYE AT BEDTIME 05/22/2025 Wixela Inhub 250-50 mcg/dose diskus inhaler Inhale 1 puff by mouth 2 (two) times a day. 07/01/2025 added in this encounter Additional Health Concerns Assessment Noted Time PHQ-9 Depression Total Score: 4 03/10/20 25 8:14 AM EDT documented as of this encounter Care Teams Tile Mechanic Relationship Specialty Start Date End Date Paola Walsh MD [address] [place] [phone] PCP - General Internal Medicine 07/09/24 documented as of this encounter
--- NOTE | 2025-07-01 11:02 | MHC.OFFVIS ---
Intake Visit Reasons: hemorrhagic stroke HPI Comments Details: 79 years old right-handed woman with past medical history of hypertension developed left sided hearing loss in March of 2025 when she was noted to have some fluid in her left ear in an urgent care center. At that time, she was not having headaches. Apparently because of hearing loss, she had a noncontrast MRI of brain at [facility] which revealed an acute left posterior parietal small intracerebral hemorrhage with a tiny area of probably chronic similar lesion in left medial occipital cortex. She was asked to come to emergency room where her initial blood pressure was 154/104. A head CT was done same day that did not reveal any hyperdensity in the area of the bleed seen on MRI but rather it showed hypodensity. On my review, I see that hypodensity with a tiny area of hyperdensity. A CTA was also done revealing same. The next day she had MRI of brain with and without contrast revealing same findings. In addition, findings of pachymeningitis were noted. She was transferred to [facility] and apparently there she had more imaging but exact cause of bleeding was not found. She had a repeat MRI of brain in June of 2025 at [facility] that revealed almost complete resolution of the intracerebral hemorrhage and no new lesion. There seems to be a feeding vessel suggesting that this might be an AVM with intermittent bleeding. There were no signs of punctate chronic hemosiderin in rest of the brain or signs of any other cortical hemorrhage. Review of Systems Narrative - Neurological: Reports daily headaches, characterized as severe and hammer-like, exacerbated by coughing. Denies functional or speech impairments. - HEENT: Reports a history of sudden left-sided hearing loss which has improved, but an audiology exam showed hearing loss worse in the right ear than the left. Denies symptoms of cold or flu around the time of the initial event. - Constitutional: Denies history of cancer. - Respiratory: Reports a frequent cough due to allergies and asthma. Physical Exam Neuro Other: Mental Status: Alert and oriented to person, place, and time. Normal attention. Normal spontaneous speech, fluency, and comprehension. No obvious issues with mood and memory. Affect is appropriate. Cranial Nerves: CN II: Visual rodriguez full to confrontation, visual acuity intact. CN III, IV, : Pupils equal, round, reactive to light and accommodation. Extraocular movements are normal. CN V: Facial sensation is normal. CN VII: Facial movements symmetrical. CN VIII: Hearing intact to bedside conversation is normal. CN IX, X: Palate elevates symmetrically. CN XI: Shoulder shrug and head turn symmetrical. CN XII: Tongue midline without atrophy or fasciculations. Motor: Bulk and tone normal in all extremities. No significant muscle weakness in arms and legs. No drift. Reflexes: Deep tendon reflexes are trace to absent Coordination: Srubnx-it-aeet with mild bilateral ataxia Gait and Station: No obvious gait abnormality. No ataxia or instability. Sensory: Intact to light touch, pinprick, and vibration. Romberg is negative. Extrapyramidal: Full facial expressions and blinking. No rigidity. Movements are appropriate with no tremor or abnormality. Speech: Normal; no dysarthria or tremor. Assessment & Plan Assessment & Plan (1) Intracerebral hemorrhage: Comment: MR brain WO at [facility] on Mar 20, 2025: Small left post parietal acute ICH and a smaller L medial occipital chronic ICH CT brain WO at [facility] on Mar 20, 2025: Left FP hypodensity in the area of ICH seen on MRI with a tiny hyperdensity CT brain WO at [facility] on Mar 21, 2025: Hypodensity is seen but no hyperdensity MR brain WWO at [facility] on Mar 22, 2025: Subacute left parietal ICH and signs of pachymeningitis CTA brain at [facility] on Mar 21, 2025: L FP hypodensity MRI brain WO at [facility] in Jun 2025: Resolved left parietal ICH, pachymeningitis, MVD Code(s): I61.9 - Nontraumatic intracerebral hemorrhage, unspecified Category: Medical Qualifiers: Intracerebral hemorrhage etiology: nontraumatic Cerebral hemorrhage location: cerebral hemisphere, cortical portion Laterality: left Qualified Code(s): I61.1 - Nontraumatic intracerebral hemorrhage in hemisphere, cortical Plan 79 years old woman who 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 There were no imaging signs of amyloid angiopathy. Around the time she had the 1st MRI, her main complaint was left-sided hearing loss and a provider told her that there was some fluid in her left ear. This would suggest that maybe she was suffering from a viral illness, which could explain findings of patchy meningitis noted on her MRI. She denied that she was having any headaches at that time. Her hearing has improved though headaches have continued. Recent MRI of brain has revealed somewhat resolution of the left parietal intracerebral hemorrhage. She was reassured and educated and was advised to have maybe 1 more MRI in 3 months' time. If that would be clear, further imaging might not be needed. As far as headaches are concerned, she was asked to try topiramate 25 mg at night and have couple of blood tests. Orders: Orders Erythrocyte Sedimentation Rate Today I63.9 - Cerebral infarction, unspecified Lyme IgG/IgM w/reflex to WB Today I63.9 - Cerebral infarction, unspecified Medications: New topiramate 25 mg orally one at night; 90 tabs 0RF Coding Level of Care Code New Pt Level 5 (79730) Global (90005) Diagnoses Nontraumatic cortical hemorrhage of left cerebral hemisphere I61.1 Intracerebral hemorrhage etiology: nontraumatic Cerebral hemorrhage location: cerebral hemisphere, cortical portion Laterality: left Time Spent (min) 70
--- OUTSIDE RECORDS SUMMARY | 2025-07-01 21:41 | XMS_ITS | Encounter Summary ---
Author Organization [facility] [address] Address [address] [place] [address] Care Team Providers Care General Agent Name Role Phone Paoal Walsh MD Primary Care Provider [phone] Encounter Details Date Type Department Care Team ([facility] st Contact Info) Description 06/11/2025 Results Follow-Up Internal Medicine - [place] [address] [place] [phone] Paola Walsh MD [address] [place] [address] Social History Tobacco Use Types Packs/Day Years [...] for your loved ones. 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 [...] on file documented as of this encounter Plan of Treatment Upcoming Encounters Date Type Department Care Team (Late st Contact Info) Description 07/24/2025 8:30 AM EST Office Visit Pulmonology - [place] [address] [place] [address] Angela France MD [address] [place] [address] 09/03/2025 1:00 PM EST Office Visit Internal Medicine - [place] [address] [place] [address] Paola Walsh MD [address] [place] [phone] documented as of this encounter Visit Diagnoses Not on filedocumented in this encounter Additional Health Concerns Infection Onset Date Last Indicated Resolved Time Respiratory Rule-Out 06/29/2025 06/29/2025 025 5:57 PM EST COVID-19 Rule-Out 06/29/2025 06/29/2025 06/29/2025 5:57 PM EST Assessment Noted Time PHQ-9 Depression Total Score: 4 03/10/20 25 8:14 AM EDT documented as of this encounter Care Teams General Agent Relationship Specialty Start Date End Date Paola Walsh MD [address] [place] [phone] PCP - General Internal Medicine 07/09/24 documented as of this encounter
--- OUTSIDE RECORDS SUMMARY | 2025-07-01 21:41 | XMS_ITS ---
Author Name [facility] Organization Unknown Results Test Name/Text Value Interpretation Date Range Source Magnesium SerPl-mCnc 2.1 mg/dL 03/23/2025 1.7 - 2. 8 [facility] Anion Gap SerPl Calc-sCnc 11.0 03/23/2025 5 - 14 [facility] Creat SerPl-mCnc 0.8 mg/dL 03/23/2025 0.5 - 1 [facility] CO2 SerPl-sCnc 26.0 mmol/L 03/23/2025 24 - 32 CT [facility] Potassium SerPl-sCnc 4.0 mmol/L 03/23/2025 3.5 - 5 .1 [facility] eGFRcr SerPlBld CKD-EPI 2020 76.0 mL/min/1.73m2 03/23/2025 - [facility] Sodium SerPl-sCnc 140.0 mmol/L 03/23/2025 135 - 14 5 [facility] Glucose SerPl-mCnc 130.0 mg/dL 03/23/2025 70 - 199 [facility] Chloride SerPl-sCnc 103.0 mmol/L 03/23/2025 98 - 1 07 [facility] BUN SerPl-mCnc 20.0 mg/dL Above high normal 03/23/2025 7 - 1 7 [facility] Calcium SerPl-mCnc 9.4 mg/dL 03/23/2025 8.4 - 10.2 [facility] BUN/Creat SerPl 25.0 Above high normal 03/23/2025 12 - 20 [facility] Basophils NFr Bld Auto 0.4 % 03/23/2025 0 - 2 [facility] Eosinophil # Bld Auto 0.3 K/mcL 03/23/2025 0 - 0.5 [facility] Platelet # Bld Auto 187.0 K/mcL 03/23/2025 150 - 4 50 [facility] Lymphocytes # Bld Auto 1.1 K/mcL 03/23/2025 1 - 3.2 [facility] Hct VFr Bld Auto 41.7 % 03/23/2025 37 - 47 [facility] Neutrophils NFr Bld Auto 68.5 % 03/23/2025 44 - 74 [facility] Eosinophil NFr Bld Auto 5.7 % 03/23/2025 0 - 6 [facility] MCHC RBC Auto-EntMCnc 32.8 g/dL 03/23/2025 32 - 36 [facility] Neutrophils # Bld Auto 4.1 K/mcL 03/23/2025 1.8 - 7.8 [facility] Monocytes # Bld Auto 0.4 K/mcL 03/23/2025 0 - 0.8 [facility] PMV Bld Auto 9.7 FL 03/23/2025 7.4 - 11.4 [facility] Hgb Bld-mCnc 13.7 g/dL 03/23/2025 12.5 - 16 [facility] Basophils # Bld Auto 0.0 K/mcL 03/23/2025 0 - 0.2 [facility] RDW RBC Auto 14.3 % 03/23/2025 12.1 - 16.2 [facility] RBC Auto 87.9 FL 03/23/2025 78 - 100 [facility] N Monocytes NFr Bld Auto 7.4 % 03/23/2025 2 - 12 [facility] Lymphocytes NFr Bld Auto 18.0 % Below low normal 03/23/2025 20 - 48 [facility] MCH RBC Qn Auto 28.8 pcg 03/23/2025 25 - 33 [facility] WBC # Bld Auto 5.9 K/mcL 03/23/2025 4 - 10.5 [facility] RBC # Bld Auto 4.75 M/mcL 03/23/2025 4.2 - 5.4 [facility] eGFRcr SerPlBld CKD-EPI 2020 76.0 mL/min/1.73m2 03/22/2025 - [facility] CO2 SerPl-sCnc 31.0 mmol/L 03/22/2025 24 - 32 [facility] Potassium SerPl-sCnc 3.8 mmol/L 03/22/2025 3.5 - 5 .1 [facility] Calcium SerPl-mCnc 9.2 mg/dL 03/22/2025 8.4 - 10.2 [facility] Sodium SerPl-sCnc 141.0 mmol/L 03/22/2025 135 - 14 5 [facility] Creat SerPl-mCnc 0.8 mg/dL 03/22/2025 0.5 - 1 CT [facility] BUN SerPl-mCnc 16.0 mg/dL 03/22/2025 7 - 17 [facility] Chloride SerPl-sCnc 103.0 mmol/L 03/22/2025 98 - 1 07 [facility] Glucose SerPl-mCnc 96.0 mg/dL 03/22/2025 70 - 199 [facility] Anion Gap SerPl Calc-sCnc 7.0 03/22/2025 5 - 14 [facility] BUN/Creat SerPl 20.0 03/22/2025 12 - 20 [facility] Magnesium SerPl-mCnc 1.6 mg/dL Below low normal 03/22/2025 1 .7 - 2.8 [facility] MCHC RBC Auto-EntMCnc 32.8 g/dL 03/22/2025 32 - 36 [facility] MCH RBC Qn Auto 28.6 pcg 03/22/2025 25 - 33 [facility] RBC # Bld Auto 4.41 M/mcL 03/22/2025 4.2 - 5.4 [facility] RBC Auto 87.2 FL 03/22/2025 78 - 100 [facility] WBC # Bld Auto 5.4 K/mcL 03/22/2025 4 - 10.5 [facility] Hgb Bld-mCnc 12.6 g/dL 03/22/2025 12.5 - 16 [facility] Neutrophils NFr Bld Auto 64.9 % 03/22/2025 44 - 74 [facility] Monocytes NFr Bld Auto 11.3 % 03/22/2025 2 - 12 [facility] RDW RBC Auto 14.1 % 03/22/2025 12.1 - 16.2 [facility] Eosinophil NFr Bld Auto 5.5 % 03/22/2025 0 - 6 [facility] Lymphocytes NFr Bld Auto 17.7 % Below low normal 03/22/2025 20 - 48 [facility] Hct VFr Bld Auto 38.4 % 03/22/2025 37 - 47 [facility] Neutrophils # Bld Auto 3.5 K/mcL 03/22/2025 1.8 - 7.8 [facility] Monocytes # Bld Auto 0.6 K/mcL 03/22/2025 0 - 0.8 [facility] Lymphocytes # Bld Auto 1.0 K/mcL 03/22/2025 1 - 3.2 [facility] PMV Bld Auto 9.4 FL 03/22/2025 7.4 - 11.4 [facility] Platelet # Bld Auto 192.0 K/mcL 03/22/2025 150 - 4 50 [facility] Basophils # Bld Auto 0.0 K/mcL 03/22/2025 0 - 0.2 [facility] Eosinophil # Bld Auto 0.3 K/mcL 03/22/2025 0 - 0.5 [facility] Basophils NFr Bld Auto 0.6 % 03/22/2025 0 - 2 [facility] Glucose Bld-mCnc 84.0 mg/dL 03/22/2025 70 - 199 C [facility] Glucose Bld-mCnc 139.0 mg/dL 03/21/2025 70 - 199 [facility] HbA1c MFr Bld 5.2 % 03/21/2025 - 5.7 [facility] Est. average glucose Bld gHb Est-mCnc 103.0 mg/dL 03/21/2025 [facility] LDLc SerPl Calc-mCnc 74.0 mg/dL 03/21/2025 50 - 13 0 [facility] Cholest SerPl-mCnc 136.0 mg/dL 03/21/2025 0 - 200 [facility] Trigl SerPl-mCnc 96.0 mg/dL 03/21/2025 - 150 C [facility] HDLc SerPl-mCnc 43.0 mg/dL 03/21/2025 33 - 92 [facility] VLDLc SerPl Calc-mCnc 19.2 mg/dL 03/21/2025 [facility] INR PPP 1.0 03/21/2025 0.8 - 1.1 [facility] N PT Bld 11.1 sec 03/21/2025 10.5 - 13.3 [facility] Glucose Bld-mCnc 90.0 mg/dL 03/21/2025 70 - 199 C [facility] History of Medication Use Medication Directions Dispensed Refills Start Date End Date Status hydroCHLOROthiazide (HYDRODIURIL) tablet 25 mg 25 mg, oral, Daily, First dose on Sun03/23/25 at 0900 5 03/23/20 aborted valsartan (DIOVAN) 40 mg tablet Take 2 tablets (80 mg total) by mouth 1 (one) time each day. 5 active valsartan (DIOVAN) tablet 40 mg 40 mg, oral, Daily, First dose (after last modification) on Sun03/23/25 at 1300 5 active magnesium sulfate 2 gram/50 mL (4 %) IVPB 2 g 2 g, intravenous, at 25 mL/hr, Administer over 2 Hours, Once, On Sun03/23/25 at 0900, For 1 dose 5 03/23/20 completed gadoterate meglumine (CLARISCAN, DOTAREM) injection 15 mL 15 mL, intravenous, Once in imaging, Starting on Sun03/22/25 at 0425, For 1 dose 5 03/22/20 completed hydrALAZINE (APRESOLINE) tablet 25 mg 25 mg, oral, 3 times daily, First dose (after last modification) on 03/21/25 at 1100 08/09/202 5 03/23/20 25 aborted levothyroxine (SYNTHROID, LEVOTHROID) tablet 50 mcg 50 mcg, oral, Every morning before breakfast, First dose (after last modification) on Sun03/24/25 at 0700, ORAL ROUTE: take on an empty stomach and separate from other medications. ENTERAL TUBE ROUTE: If newly initiated enteral nutrition duration is over 5 days, hold enteral nutrition 1 hour before 5 03/23/20 active acetaminophen (TYLENOL) tablet 500 mg 500 mg, oral, Every 6 hours PRN, headaches, mild pain, Starting on Sun03/21/25 at 0151 5 active atorvastatin (LIPITOR) tablet 40 mg 40 mg, oral, Nightly, First dose on Sun03/21/25 at 0230 5 active budesonide (PULMICORT) 1 mg/2 mL nebulizer solution 1 mg [Order 1 Start] Name: budesonide (PULMICORT) 1 mg/2 mL nebulizer solution 1 mg Signed Summary: 1 mg, nebulization, Daily, First dose on Sun03/21/25 at 0800, Rinse mouth with water after use to reduce aftertaste and incidence of candidiasis. Do not swallow. Therapeutic substitution for SYMBICORT 160/4 5 active ipratropium-albuteroL (DUONEB) 0.5-2.5 mg/3 mL nebulizer solution 3 mL 3 mL, nebulization, Every 6 hours PRN, wheezing, Starting on Sun03/21/25 at 0146 5 active latanoprost (XALATAN) 0.005 % ophthalmic solution 1 drop 1 drop, Both Eyes, Nightly, First dose on Sun03/21/25 at 0200 5 active sodium chloride 0.9 % flush 10 mL [Order 1 Start] Name: Insert peripheral IV Signed Summary: STAT, Once, On Sun03/21/25 at 0037, For 1 occurrence [Order 1 End] [Order 2 Start] Name: Maintain IV access Signed Summary: Until discontinued, Starting on Sun03/21/25 at 0037, Until Specified [Order 2 End] [Order 3 Start] Name: Saline lock IV 5 active timolol (TIMOPTIC) 0.5 % ophthalmic solution 1 drop 1 drop, Both Eyes, 2 times daily, First dose on 03/21/25 at 0215 5 active azithromycin (ZITHROMAX) 250 mg tablet Take 2 tablets (500 mg total) by mouth 1 (one) time each day for 1 day, THEN 1 tablet (250 mg total) 1 (one) time each day for 4 days. 5 03/23/20 25 aborted magnesium oxide 400 mg magnesium capsule Take 1 capsule by mouth 1 (one) time each day. 5 active rosuvastatin (CRESTOR) 10 mg tablet TAKE ONE TABLET BY MOUTH EVERY DAY 5 active hydrALAZINE (APRESOLINE) 25 mg tablet Take 1 tablet (25 mg total) by mouth 3 (three) times a day. 5 03/23/20 25 aborted hydroCHLOROthiazide (HYDRODIURIL) 25 mg tablet TAKE ONE TABLET BY MOUTH EVERY DAY 4 03/23/20 25 aborted levothyroxine (SYNTHROID, LEVOTHROID) 50 mcg tablet Take 1 Tablet by mouth daily. 4 active albuterol HFA (PROAIR HFA ; PROVENTIL HFA ; VENTOLIN HFA) 90 mcg/actuation inhaler INHALE 2 PUFFS BY MOUTH 4 TIMES A DAY NEEDED FOR COUGHING OR WHEEZING 4 active montelukast (SINGULAIR) 10 mg tablet Take 1 Tablet by mouth at bedtime for 360 days. 3 active latanoprost (XALATAN) 0.005 % ophthalmic solution Place 1 Drop into both eyes 2 times daily. 1 active cholecalciferol (VITAMIN D-3) 50 mcg (2,000 unit) tablet 2,000 Units. 1 active cyanocobalamin, vitamin B-12, 1,000 mcg capsule Take 1,000 mg by mouth daily. active omega-3 acid ethyl esters (LOVAZA) 1 gram capsule Take 1,000 mg by mouth daily. 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 ProblemAct [facility] Left kidney mass active 2017-10-02 ProblemAct C [facility] Hypercholesterolemia active 2018-01-16 ProblemAct [facility] Esophageal reflux active 2013-03-31 ProblemAct [facility] Vitamin D insufficiency active 2017-10-17 ProblemAct [facility] Lumbar radiculopathy active 2017-06-27 ProblemAct [facility] Allergic rhinitis active 2012-12-25 ProblemAct [facility] Diverticulosis active 2013-12-15 ProblemAct [facility] Asthma active 2017-03-21 ProblemAct [facility] Hypomagnesemia active 2023-12-28 ProblemAct [facility] Neuroforaminal stenosis of spine active 2017-07-04 ProblemAct [facility] Hypertension active 2018-01-16 ProblemAct [facility] Hemorrhagic stroke ([facility] V24, [facility] V28) active 2025-03-21 ProblemAct [facility] Immunizations Vaccine Date Source Lot Number Status [employer] SARS-CoV-2 COVID-19, mRNA, LNP-S, preservative free 12/23/2020 [facility] [id number] completed [employer] SARS-CoV-2 COVID-19, mRNA, LNP-S, preservative free 12/02/2020 [facility] [id number] completed Encounters Encounter Type Encounter Reason Primary Diagnosis Location Date Ambulatory Nontraumatic intracerebral hemorrhage, unspecified ([facility] V24, [facility] V28) Nontraumatic intracerebral hemorrhage, unspecified ([facility] V24, [facility] V28) [facility] 06/23/2025 Inpatient Left parital hematoma Nontraumat ic intracerebral hemorrhage, unspecified ([facility] V24, [facility] V28) [facility] 03/21/2025 Care Team Organization Name Specialty Phone Email Start Date End [facility] te [facility] 06/23/2025 [facility] Primary Care 03/24/2025 [facility] Primary Care 03/21/2025 [facility] Primary Care 06/20/2022 03/31/20
--- OUTSIDE RECORDS SUMMARY | 2025-07-01 21:41 | XMS_ITS | Clinical Summary ---
Author Organization 175 [facility] Address [address] [place] [address] Phone Care Team Providers Care Senior Instructional Designer Name Role Phone Paola Walsh MD Primary Care Provider [phone] Allergies Active Allergy Reactions Criticality Noted Date Comments Amlodipine 11/26/2013 Amoxicillin-Pot Clavulanate 10/15/19 10 Clavulanic Acid High 12/29/2023 Codeine 06/30/2025 Losartan 11/26/2013 Simvastatin 10/01/2013 Medications cholecalcifero l (VITAMIN D-3) 50 mcg (2,000 unit) tablet 2,000 Units. 03/08/20 11 Active cyanocobalamin , vitamin B-12, 1,000 mcg capsule Take 1,000 mg by mouth daily. Active latanoprost (XALATAN) 0.005 % ophthalmic solution Place 1 Drop into both eyes 2 times daily. 05/17/20 21 Active omega-3 acid ethyl esters (LOVAZA) 1 gram capsule Take 1,000 mg by mouth daily. Active rosuvastatin (CRESTOR) 10 mg tablet Take 1 tablet (10 mg total) by mouth at bedtime. 90 tablet 1 04/02/20 25 Active albuterol HFA (PROAIR HFA ; PROVENTIL HFA ; VENTOLIN HFA) 90 mcg/actuation inhaler INHALE 2 PUFFS BY MOUTH 4 TIMES A DAY NEEDED FOR COUGHING OR WHEEZING 18 g 11 04/29/20 25 Active hydroCHLOROthi azide 12.5 mg tablet Take 1 tablet (12.5 mg total) by mouth 1 (one) time each day. 90 each 3 04/30/20 25 Active valsartan (DIOVAN) 320 mg tablet Take 1 tablet (320 mg total) by mouth 1 (one) time each day. 90 tablet 3 05/21/20 25 Active magnesium oxide 400 mg magnesium capsule Take 1 capsule by mouth 1 (one) time each day. 90 capsule 3 05/21/20 25 Active levothyroxine (SYNTHROID, LEVOTHROID) 50 mcg tablet Take 1 tablet (50 mcg total) by mouth 1 (one) time each day. 90 tablet 2 05/21/20 25 Active azithromycin (ZITHROMAX) 250 mg tablet Take 2 tablets (500 mg total) by mouth 1 (one) time each day for 1 day, THEN 1 tablet (250 mg total) 1 (one) time each day for 4 days. 6 each 06/30/20 25 Active predniSONE (DELTASONE) 20 mg tablet Take 1 tablet (20 mg total) by mouth 2 (two) times a day for 4 days. See instructions. 8 tablet 06/30/20 25 Active fluticasone propionate (FLONASE) 50 mcg/actuation nasal spray Administer 1 spray into each nostril 1 (one) time each day. Shake gently. Before first use, prime pump. After use, clean tip and replace cap. 16 g 06/30/20 25 Active Rocklatan 0.02-0.005 % drops PLACE 1 DROP IN EACH EYE AT BEDTIME 05/22/20 Active timolol (TIMOPTIC) 0.5 % ophthalmic solution INSTILL ONE DROP INTO THE RIGHT EYE IN THE MORNING 06/10/20 Active Wixela Inhub 250-50 mcg/dose diskus inhaler INHALE ONE PUFF BY MOUTH TWICE A DAY 60 each 11 07/01/20 25 Active Wixela Inhub 250-50 mcg/dose diskus inhaler Inhale 1 puff by mouth 2 (two) times a day. Discontinued Active Problems Problem Noted Date Diagnosed Date Hemorrhagic stroke ([facility] V24, [facility] V28) Assessment & Plan (04/30/2025 11:17 AM EDT): Hypomagnesemia 12/28/2023 Assessment & Plan (04/30/2025 11:17 AM EDT): Hypercholesterolemia 01/16/2018 Hypertension 01/16/2018 Assessment & Plan (04/30/2025 11:17 AM EDT): Orders: Thyroid stimulating hormone; Future Ambulatory referral to Vascular Surgery; Future Vitamin D insufficiency 10/17/2017 Left kidney mass 10/02/2017 Neuroforaminal stenosis of spine 07/04/2017 Lumbar radiculopathy 06/27/2017 Asthma 03/21/2017 Diverticulosis 12/15/2013 Nontoxic uninodular goiter 06/25/2013 Esophageal reflux 03/31/2013 Allergic rhinitis 12/25/2012 Encounters Date Type Department Care Team Description 06/30/2025 8:45 AM EST Office Visit Neurosurgery [place] [address] [place] [phone] Nhan Samaniego MD Hemorrhagic stroke ([facility] V24, [facility] V28) (Primary Dx) 06/29/2025 2:16 PM EST - 06/30/2025 2:55 AM EST Emergency [facility] Emergency [address] [place] [phone] Ernestina Zheng MD Landry, Jonathan P, MD Shortness of breath (Primary Dx); Moderate persistent asthma with exacerbation; Chronic cough; Itching sensation of throat; Globus sensation; SOWMYA (obstructive sleep apnea); Elevated troponin; COPD exacerbation ([facility] V24, [facility] V28) Discharge Disposition: Home or Self Care 06/23/2025 9:58 AM EST - 06/23/2025 11:59 PM EST Hospital Encounter [address] [phone] Hemorrhagic stroke ([facility] V24, [facility] V28) Discharge Disposition: Home or Self Care 06/11/2025 9:15 AM EDT - 06/11/2025 11:59 PM EDT Hospital Encounter [facility] Bone Density [address] [place] [phone] Postmenopausal state Discharge Disposition: Home or Self Care 06/11/2025 Results Follow-Up Internal Medicine - [facility] [address] [phone] Paola Walsh MD 05/21/2025 12:00 PM EDT Office Visit Internal [address] [phone] Paola Walsh MD Primary hypertension (Primary Dx); Hemorrhagic stroke (CMS/HCC V24, CMS/HCC V28); Hypothyroidism (acquired) 04/30/2025 10:30 AM EDT Office Visit Internal Medicine [facility] [address] [phone] Paola Walsh MD Primary hypertension (Primary Dx); Hypothyroidism (acquired); Hemorrhagic stroke (CMS/HCC V24, CMS/HCC V28); Hypomagnesemia; Encounter for subsequent annual wellness visit (AWV) in Medicare patient 04/09/2025 12:57 PM EDT - 04/09/2025 11:59 PM EDT Hospital Encounter [facility] Ultrasound [address] [place] [phone] Left leg swelling; Pain of left lower extremity; Positive D dimer Discharge Disposition: Home or Self Care 04/03/2025 Telephone Internal Medicine [facility] [address] [phone] Paola Walsh MD 04/02/2025 1:30 PM EDT Office Visit Internal [address] [phone] Paola Walsh MD Intraparenchymal hematoma of brain, left, without loss of consciousness, sequela (CMS/HCC V24) (Primary Dx); Pain of left lower extremity; Hypomagnesemia; Hypothyroidism (acquired) from Last 3 Months Immunizations Immunization Administration Dates Next Due Pfizer SARS-CoV-2 COVID-19, mRNA, LNP-S, preservative free 12/23/2020,12/02/2020 Surgical History Surgery Date Site/Laterality Comments TONSILLECTOMY PROCEDURE: HISTORICAL TONSILLECTOMY HYSTERECTOMY PROCEDURE: HISTORICAL HYSTERECTOMY SHOULDER SURGERY PROCEDURE: HISTORICAL SHOULDER SURGERY Medical History Medical History Date Comments Asthma Bleeding in brain ([facility] V24, [facility] V28) initially found last year Social History Tobacco Use Types Packs/Day Years [...] care for your loved ones. For example, childhood teacher or elderly care for an older [...] on file Sexual Orientation Not on file Obstetrics History Last Filed Vital Signs Vital Sign Reading [...] Mass Index 33.2 06/30/2025 8:59 AM EST Plan of Treatment Upcoming Encounters Date Type Department Care Team (Late st Contact Info) Description 07/24/2025 8:30 AM EST Office Visit Pulmonology - [address] [phone] Angela France MD [address] [place] [phone] 09/03/2025 1:00 PM EST Office Visit Internal Medicine - [address] [phone] Paola Walsh MD [address] [place] [phone] Health Maintenance Due Date Last Done Comments DTaP,Tdap,and Td Vaccines (1 - Tdap) 1964 Pneumococcal Vaccine: 50+ Years (1 of 2 - PCV) 1965 Zoster Vaccines (1 of 2) 1996 RSV Immunization Adult Patients (1 - 1-dose 75+ series) 2021 Hepatitis C Screening 07/22/2022 COVID-19 Vaccine (4 - season) 2025 01/28/2022, 12/23/2020, 12/02/2020 Influenza Vaccine (#1) 2025 Falls Risk Assessment 03/23/2026 03/23/2025 Social Influencers of Health Screening 04/29/2026 04/29/2025 Medicare Annual Wellness Visit 04/30/2026 04/30/2025 Hypertension/CHF/CAD Annual BMP Blood Test 06/29/2026 06/29/2025, 03/23/2025, 03/22/2025, Additional history exists Cholesterol Screening (Lipid Panel) 03/21/2030 03/21/2025, 08/02/2022 Osteoporosis Screening (Bone Density Screening) 06/11/2035 06/11/2025 Depression Screening Completed 05/14/2025 HIB Vaccines Aged Out No longer eligi ble based on patient's age to complete this topic HPV Vaccines Aged Out No longer eligi ble based on patient's age to complete this topic Hepatitis A Vaccines Aged Out No long er eligible based on patient's age to complete this topic Hepatitis B Vaccines Aged Out No long er eligible based on patient's age to complete this topic IPV Vaccines Aged Out No longer eligi ble based on patient's age to complete this topic MMR Vaccines Aged Out No longer eligi ble based on patient's age to complete this topic Meningococcal ACWY Vaccine Aged Out N o longer eligible based on patient's age to complete this topic Meningococcal B Vaccine Aged Out No l onger eligible based on patient's age to complete this topic RSV Immunization Patients Under 20 months Aged Out No longer eligible based on patient's age to complete this topic Varicella Vaccines Aged Out No longer eligible based on patient's age to complete this topic Procedures Procedure Name Priority Date/Time Associated Diagnosis Comments D-DIMER STAT 06/30/2025 12:34 AM EST ECG ANNOTATED 06/30/2025 ECG ANNOTATED 06/30/2025 B-TYPE NATRIURETIC PEPTIDE STAT 06/29/2025 11:23 PM EST TROPONIN I HIGH SENSITIVITY STAT 06/29/2025 11:23 PM EST TROPONIN I HIGH SENSITIVITY STAT 06/29/2025 8:[address] NECK SOFT TISSUE W CONTRAST STAT 06/29/2025 8:36 PM EST RESPIRATORY VIRUS PANEL MOLECULAR STUDY STAT 06/29/2025 3:47 PM EST BASIC METABOLIC PANEL STAT 06/29/2025 3:45 PM EST TROPONIN I HIGH SENSITIVITY STAT 06/29/2025 3:45 PM EST COMPLETE BLOOD COUNT STAT 06/29/2025 3:45 PM EST XR CHEST 1 VIEW STAT 06/29/2025 3:26 PM EST ECG 12-LEAD STAT 06/29/2025 3:17 PM EST MR BRAIN WO CONTRAST Routine 06/23/2025 11:33 AM EST Hemorrhagic stroke (CMS/HCC V24, CMS/HCC V28) BD BONE DENSITY DXA AXIAL SKELETON Routine 06/11/2025 10:06 AM EDT Postmenopausal state THYROID STIMULATING HORMONE Routine 04/30/2025 11:11 AM EDT Primary hypertension Hypothyroidism (acquired) VAS US DUPLEX LOWER EXT VENOUS LEFT STAT 04/09/2025 1:29 PM EDT Left leg swelling Pain of left lower extremity Positive D dimer THYROID STIMULATING HORMONE Routine 04/02/2025 2:10 PM EDT Pain of left lower extremity Hypomagnesemia Hypothyroidism (acquired) MAGNESIUM Routine 04/02/2025 2:10 PM EDT Pain of left lower extremity Hypomagnesemia Hypothyroidism (acquired) D-DIMER Routine 04/02/2025 2:10 PM EDT Pain of left lower extremity LIPID PANEL Routine 03/21/2025 5:58 AM EDT from Last 3 Months or Most Recently Relevant to Health Maintenance Results * (ABNORMAL) D-dimer, quantitative (06/30/2025 12:34 AM EST) Only the most recent of2 resultswithin the time period is included. D-Dimer, Quant (D-DU) 327(H) <=230 ng/mL DDU LAB COAGULATION METHOD 06/30/2025 1:02 AM EST [facility] Blood Venous blood specimen / Unknown Venipuncture / Unknown 06/30/2025 12:34 AM EST 06/30/2025 12:48 AM EST Narrative [facility] - 06/30/2025 1:02 AM EST D-Dimer <230 ng/mL (D-Dimer units) is the threshold for exclusion of DVT/PE. D-Dimer may be elevated in: Critically ill, severely infected, trauma patients, DIC, acute CVA, acute [place], unstable angina, AF, old age, , and smoking. D-Dimer may be decreased with: Initiation of heparin therapy and oral anticoagulants. Nimesh Yeh MD LAB BLOOD ORDERABLES Final Result [facility] [address] [place] [address], * ECG-Annotated (06/30/2025) Only the most recent of2 resultswithin the time period is included. us Provider Onbase ECG ORDERABLES Final Result * (ABNORMAL) Troponin I high sensitivity (06/29/2025 11:23 PM EST) Only the most recent of3 resultswithin the time period is included. Pathologist [facility] High Sensitivity Troponin I 77(H) <=54 ng/L LAB CHEMISTRY METHOD 06/29/2025 11:49 PM EST [facility] Blood Venous blood specimen / Unknown Venipuncture / Unknown 06/29/2025 11:23 PM EST 06/29/2025 11:27 PM EST Narrative [facility] - 06/29/2025 11:49 PM EST High levels of biotin in samples may falsely decrease hsTroponin values. Use caution when interpreting hsTroponin results in patients taking biotin who exhibit renal impairment (eGFR <60) or in patients taking more than 20 mg/day of biotin. us Nimesh Yeh MD LAB BLOOD ORDERABLES Final Result Performing Organization Address City/[facility]/ZIP Co de Phone Number [facility] [address] [place] [address], [place] [phone] * B-type natriuretic peptide (06/29/2025 11:23 PM EST) [facility] BNP 86 <=100 pcg/mL LAB CHEMISTRY METHOD 06/29/2025 11:58 PM EST [facility] Blood Venous blood specimen / Unknown Venipuncture / Unknown 06/29/2025 11:23 PM EST 06/29/2025 11:27 PM EST us Nimesh Yeh MD LAB BLOOD ORDERABLES Final Result [facility] [address] [place] [address], [place] [phone] * CT Neck Soft Tissue w Contrast [...] by: Keisha Chadwick MD on 06/29/2025 21:16:34 Ernestina Zheng MD IM CT PROCEDURES Final Result * Respiratory virus panel molecular study (06/29/2025 3:47 PM EST) Adenovirus Detection by PCR Not Detected Not Detected LAB MICROBIOLOGY METHOD 06/29/2025 5:57 PM EST [facility] Influenza A PCR Not Detected Not Detected LAB MICROBIOLOGY METHOD 06/29/2025 5:57 PM [facility] Influenza B PCR Not Detected Not Detected LAB MICROBIOLOGY METHOD 06/29/2025 5:57 PM [facility] Coronavirus 229E Not Detected Not Detected LAB MICROBIOLOGY METHOD 06/29/2025 5:57 PM EST [facility] Coronavirus HKU1 Not Detected Not Detected LAB MICROBIOLOGY METHOD 06/29/2025 5:57 PM [facility] Coronavirus OC43 Not Detected Not Detected LAB MICROBIOLOGY METHOD 06/29/2025 5:57 PM [facility] Coronavirus NL63 Not Detected Not Detected LAB MICROBIOLOGY METHOD 06/29/2025 5:57 PM [facility] Parainfluenza Virus 1 Not Detected Not Detected LAB MICROBIOLOGY METHOD 06/29/2025 5:57 PM [facility] Parainfluenza Virus 2 Not Detected Not Detected LAB MICROBIOLOGY METHOD 06/29/2025 5:57 PM [facility] Parainfluenza Virus 3 Not Detected Not Detected LAB MICROBIOLOGY METHOD 06/29/2025 5:57 PM [facility] Parainfluenza Virus 4 Not Detected Not Detected LAB MICROBIOLOGY METHOD 06/29/2025 5:57 PM [facility] RSV PCR Not Detected Not Detected LAB MICROBIOLOGY METHOD 06/29/2025 5:57 PM [facility] Human Metapneumovirus A and B Not Detected Not Detected LAB MICROBIOLOGY METHOD 06/29/2025 5:57 PM [facility] Rhinovirus/Entero virus Not Detected Not Detected LAB MICROBIOLOGY METHOD 06/29/2025 5:57 PM [facility] Bordetella pertussis Not Detected Not Detected LAB MICROBIOLOGY METHOD 06/29/2025 5:57 PM [facility] Bordetella parapertussis Not Detected Not Detected LAB MICROBIOLOGY METHOD 06/29/2025 5:57 PM [facility] Mycoplasma pneumo by PCR Not Detected Not Detected LAB MICROBIOLOGY METHOD 06/29/2025 5:57 PM [facility] Chlamydia pneumoniae Not Detected Not Detected LAB MICROBIOLOGY METHOD 06/29/2025 5:57 PM [facility] SARS COV-2 Not Detected Not Detected LAB MICROBIOLOGY METHOD 06/29/2025 5:57 PM [facility] Swab Both anterior nares / Unknown Non-blood Collection / Unknown 06/29/2025 3:47 PM EST 06/29/2025 4:51 PM EST [facility] - 06/29/2025 5:57 PM EST Testing was performed using the 3CLogic Respiratory Pathogen PCR Assay. All results must [...] MICROBIOLOGY - GENERAL ORDER NARESH Final Result [facility] [address] [place] [address], * (ABNORMAL) CBC (06/29/2025 3:45 PM EST) WBC 7.8 4.8 - 10.8 K/mcL LAB HEMETOLOGY METHOD 06/29/2025 5:05 PM [facility] RBC 4.60 3.80 - 4.80 M/mcL LAB HEMETOLOGY METHOD 06/29/2025 5:05 PM [facility] Hemoglobin 13.2 11.5 - 16.0 g/dL LAB HEMETOLOGY METHOD 06/29/2025 5:05 PM [facility] Hematocrit 40.1 35.0 - 47.0 % LAB HEMETOLOGY METHOD 06/29/2025 5:05 PM [facility] MCV 87.7 79.0 - 98.0 FL LAB HEMETOLOGY METHOD 06/29/2025 5:05 PM [facility] MCH 28.9 27.0 - 32.0 pcg LAB HEMETOLOGY METHOD 06/29/2025 5:05 PM [facility] MCHC 32.9 32.0 - 37.0 g/dL LAB HEMETOLOGY METHOD 06/29/2025 5:05 PM EST [facility] RDW 13.9 11.0 - 15.0 % LAB HEMETOLOGY METHOD 06/29/2025 5:05 PM [facility] Platelets 222 130 - 400 K/mcL LAB HEMETOLOGY METHOD 06/29/2025 5:05 PM [facility] MPV 12.0(H) 7.0 - 11.0 FL LAB HEMETOLOGY METHOD 06/29/2025 5:05 PM [facility] NRBC 0.0 <1.0 % LAB HEMETOLOGY METHOD 06/29/2025 5:05 PM [facility] NRBC Absolute 0.00 <0.10 K/mcL LAB HEMETOLOGY METHOD 06/29/2025 5:05 PM [facility] Blood Venous blood specimen / Unknown Venipuncture / Unknown 06/29/2025 3:45 PM EST 06/29/2025 4:53 PM EST us Ernestina Zheng MD LAB BLOOD ORDERABLES Final Resul t [facility] [address] [place] [address], * Basic Metabolic Panel (BMP) (06/29/2025 3:45 PM EST) Sodium 141 133 - 145 mmol/L LAB CHEMISTRY METHOD 06/29/2025 6:03 PM [facility] Potassium 4.6 3.5 - 5.5 mmol/L LAB CHEMISTRY METHOD 06/29/2025 6:03 PM [facility] Comment:Hemolysis present Chloride 106 96 - 110 mmol/L LAB CHEMISTRY METHOD 06/29/2025 6:03 PM [facility] CO2 31 21 - 32 mmol/L LAB CHEMISTRY METHOD 06/29/2025 6:03 PM [facility] Anion Gap 4 3 - 11 LAB CHEMISTRY METHOD 06/29/2025 6:03 PM [facility] Glucose 83 70 - 100 mg/dL LAB CHEMISTRY METHOD 06/29/2025 6:03 PM [facility] BUN 17 5 - 25 mg/dL LAB CHEMISTRY METHOD 06/29/2025 6:03 PM [facility] Creatinine 0.81 0.50 - 1.10 mg/dL LAB CHEMISTRY METHOD 06/29/2025 6:03 PM [facility] eGFR 74 >=60 mL/min/1. 73m2 LAB CHEMISTRY METHOD 06/29/2025 6:03 PM [facility] Comment:Calculation based on the Chronic Kidney Disease Epidemiology Collaboration (CKD-EPI) equation refit without adjustment for race. BUN/Creatinine Ratio 21.0 LAB CHEMISTRY METHOD 06/29/2025 6:03 PM [facility] Calcium 9.7 8.5 - 10.5 mg/dL LAB CHEMISTRY METHOD 06/29/2025 6:03 PM [facility] Blood Venous blood specimen / Unknown Venipuncture / Unknown 06/29/2025 3:45 PM EST 06/29/2025 4:53 PM EST us Ernestina Zheng MD LAB BLOOD ORDERABLES Final Resul t [facility] [address] [place] [address], * XR Chest 1 View (06/29/2025 3:26 [...] Signed Date: 06/29/2025 15:55 ET Workstation ID: [id number] Transcribed By: Self Edit Transcribed Date: 06/29/2025 [...] Signed Date: 06/29/2025 15:55 ET Workstation ID: [id number] Transcribed By: Self Edit Transcribed Date: 06/29/2025 15:55 ET Ernestina Zheng MD IMG XR PROCEDURES Final Result * 12-Lead ECG (06/29/2025 3:17 PM EST) Ventricular Rate ECG 81 BPM GEMUSE Atrial Rate 81 BPM GEMUSE P-R Interval 148 ms GEMUSE QRS Duration 80 ms GEMUSE Q-T Interval 370 ms GEMUSE QTc 429 ms GEMUSE P Wave Bolton 37 degrees GEMUSE R Bolton 15 degrees GEMUSE T [place] 42 degrees GEMUSE ECG Interpretation Normal sinus rhythm Minimal voltage criteria for LVH, may be normal variant ( Sokolow-Vallejo ) Nonspecific T wave abnormality Abnormal ECG When compared with ECG of 20-MAR-2025 16:58, QT has shortened Confirmed by RAZA TURNER ([id number]) on 06/29/2025 11:49:03 PM GEMUSE 06/29/2025 3:17 PM EST 06/29/2025 11:49 PM EST us Ernestina Zheng MD ECG ORDERABLES Final Result GEMUSE * MR Brain wo Contrast (06/23/2025 11:33 AM EST) Anatomical Region Laterality Modality Head and Neck Magnetic Resonan ce 06/23/2025 1:22 PM EST Impressions 06/23/2025 1:33 PM EST 1. Near complete resolution of intraparenchymal hematoma in the left parietal lobe. Residual globular and slitlike collection of subacute blood products in the left parietal lobe with surrounding hemosiderin staining. No significant edema or mass effect. 2. No acute infarction. 3. Mild chronic microvascular ischemic changes of the cerebral white matter. 4. 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 -------- FINAL REPORT -------- Dictated By: Qamar Muñoz Dictated Date: 06/23/2025 13:22 ET Assigned Physician: Qamar Muñoz Reviewed and Electronically Signed By: Qamar Muñoz Signed Date: 06/23/2025 13:33 ET Workstation ID: [id number] Transcribed By: Self Edit Transcribed Date: 06/23/2025 13:22 ET Narrative 06/23/2025 1:33 PM EST EXAM: MR BRAIN WO CONTRAST CLINICAL INDICATION: Stroke, follow up COMPARISON: MRI 03/22/2025, CT 03/21/2025 TECHNIQUE: Multiplanar MR imaging utilizing standard pulse sequences. Patient motion degrades image quality. FINDINGS: EXTRA AXIAL SPACES INCLUDING BASAL CISTERNS: There is no extra-axial mass or fluid collection. 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 There are focal areas of hemosiderin staining overlying the left parietal lobe near the site of the intraparenchymal hemorrhage. VENTRICULAR SYSTEM: Normal in size and configuration for the patient's age. CEREBRAL PARENCHYMA: There is near complete resolution of intraparenchymal hematoma in the left parietal lobe. Irregular globular and slitlike collection remains extending from the cortical surface into the subcortical white matter and displaying mixed signal intensity, including areas of T1 shortening that displays increased T2 signal compatible with extracellular methemoglobin/subacute blood products. The largest globular component is seen in the subcortical white matter measuring 8 x 6 mm. There is surrounding susceptibility artifact compatible with hemosiderin staining. No significant edema or mass effect. There is also some susceptibility artifact within the medial aspect of the left occipital lobe that is unchanged compatible with remote prior hemorrhage in that location. No signs of interval acute hemorrhage. There is faintly demonstrable small punctate and confluent areas of T2 hyperintensity within the cerebral white matter involving the periventricular and subcortical regions. There is no restricted diffusion to indicate acute infarction. CEREBELLUM: The cerebellum is normal. BRAINSTEM: The brainstem and expected course of the cranial nerves is normal. CALVARIUM: Normal VASCULAR SYSTEM: Appropriate arterial and dural sinus flow voids. VISUALIZED PARANASAL SINUSES: The paranasal sinuses are clear. VISUALIZED ORBITS: The orbital structures, including optic nerve complexes, are normal. SELLA AND SKULL BASE: The sellar region and skull base are normal. Procedure Note Qamar Muñoz MD - 06/23/2025 EXAM: MR BRAIN WO CONTRAST CLINICAL INDICATION: Stroke, follow up COMPARISON: MRI 03/22/2025, CT 03/21/2025 TECHNIQUE: Multiplanar MR imaging utilizing standard pulse sequences.Patient motion degrades image quality. FINDINGS: EXTRA AXIAL SPACES INCLUDING BASAL CISTERNS: There is no extra-axial massor fluid collection. There is a thickening and increased T2 signal of thepacking meninges over the cerebral convexities correlating with findingsof pachymeningitis seen on prior contrast enhanced study. There are focalareas of hemosiderin staining overlying the left parietal lobe near thesite of the intraparenchymal hemorrhage. VENTRICULAR SYSTEM: Normal in size and configuration for the patient'sybil. CEREBRAL PARENCHYMA: There is near complete resolution of intraparenchymalhematoma in the left parietal lobe. Irregular globular and slitlikecollection remains extending from the cortical surface into thesubcortical white matter and displaying mixed signal intensity, includingareas of T1 shortening that displays increased T2 signal compatible withextracellular methemoglobin/subacute blood products. The largest globularcomponent is seen in the subcortical white matter measuring 8 x 6 mm.There is surrounding susceptibility artifact compatible with hemosiderinstaining. No significant edema or mass effect. There is also somesusceptibility artifact within the medial aspect of the left occipitallobe that is unchanged compatible with remote prior hemorrhage in thatlocation. No signs of interval acute hemorrhage. There is faintlydemonstrable small punctate and confluent areas of T2 hyperintensitywithin the cerebral white matter involving the periventricular andsubcortical regions. There is no restricted diffusion to indicate acute infarction. CEREBELLUM: The cerebellum is normal. BRAINSTEM: The brainstem and expected course of the cranial nerves isnormal. CALVARIUM: Normal VASCULAR SYSTEM: Appropriate arterial and dural sinus flow voids. VISUALIZED PARANASAL SINUSES: The paranasal sinuses are clear. VISUALIZED ORBITS: The orbital structures, including optic nervecomplexes, are normal. SELLA AND SKULL BASE: The sellar region and skull base are normal. IMPRESSION: 1. Near complete resolution of intraparenchymal hematoma in the leftparietal lobe. Residual globular and slitlike collection of subacute bloodproducts in the left parietal lobe with surrounding hemosiderin staining.No significant edema or mass effect. 2. No acute infarction. 3. Mild chronic microvascular ischemic changes of the cerebral whitematter. 4. 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 -------- FINAL REPORT -------- Dictated By: Qamar Muñoz Dictated Date: 06/23/2025 13:22 ET Assigned Physician: Qamar Muñoz Reviewed and Electronically Signed By: Qamar Muñoz Signed Date: 06/23/2025 13:33 ET Workstation ID: [id number] Transcribed By: Self Edit Transcribed Date: 06/23/2025 13:22 ET us Steve Burciaga MD IMG MRI PROCEDURES Final Result * BD Bone Density DXA Axial Skeleton (06/11/2025 10:06 AM EDT) Anatomical Region Laterality Modality Wrist, Hip, L-spine Bone Densito metry 06/11/2025 11:0 8 AM EDT Impressions 06/11/2025 11:11 AM EDT 1. There is no evidence of osteoporosis or osteopenia. There has been a decrease of 1.8% in bone mineral density in the lumbar spine since the prior examination of 10/04/2016. There has been a decrease of 1.2% in bone mineral density in the right femur and a decrease of 6.2% in bone mineral density in the left femur. 2. FRAX analysis yields a 10-year probability of major osteoporotic fracture of 4.3% and a 10-year probability of hip fracture of 0.7%. Code 77678 -------- FINAL REPORT -------- Dictated By: Ralf Beard Dictated Date: 06/11/2025 11:08 ET Assigned Physician: Ralf Beard Reviewed and Electronically Signed By: Ralf Beard Signed Date: 06/11/2025 11:11 ET Workstation ID: [id number] Transcribed By: Self Edit Transcribed Date: 06/11/2025 11:09 ET Narrative 06/11/2025 11:11 AM EDT HISTORY: The patient is a 79-year-old postmenopausal female with clinical concern for metabolic bone disease. FINDINGS: Dual energy x-ray absorptiometry of the lumbar spine and femurs is performed. The mean bone mineral density at L1-L4 is 1.172 gm/cm2 which is 99% of that of young normals and 107% of that of age matched controls. This yields a T-score of -0.1 and a Z-score of 0.6 and there is therefore no evidence of osteoporosis or osteopenia here. The mean bone mineral density of the femurs bilaterally is 1.055 gm/cm2 which is 105% of that of young normals and 114% of that of age matched controls. This yields a T-score of 0.4 and a Z-score of 1.0 and there is therefore no evidence of osteoporosis or osteopenia here. Procedure Note Ralf Beard MD - 06/11/2025 HISTORY: The patient is a 79-year-old postmenopausal female with clinicalconcern for metabolic bone disease. FINDINGS: Dual energy x-ray absorptiometry of the lumbar spine and femursis performed. The mean bone mineral density at L1-L4 is 1.172 gm/cm2 whichis 99% of that of young normals and 107% of that of age matched controls.This yields a T-score of -0.1 and a Z-score of 0.6 and there is thereforeno evidence of osteoporosis or osteopenia here. The mean bone mineral density of the femurs bilaterally is 1.055 gm/wp5plzun is 105% of that of young normals and 114% of that of age matchedcontrols. This yields a T-score of 0.4 and a Z-score of 1.0 and there istherefore no evidence of osteoporosis or osteopenia here. IMPRESSION: 1. There is no evidence of osteoporosis or osteopenia. There has been adecrease of 1.8% in bone mineral density in the lumbar spine since theprior examination of 10/04/2016. There has been a decrease of 1.2% in bonemineral density in the right femur and a decrease of 6.2% in bone mineraldensity in the left femur. 2. FRAX analysis yields a 10-year probability of major osteoporoticfracture of 4.3% and a 10-year probability of hip fracture of 0.7%. Code 53274 -------- FINAL REPORT -------- Dictated By: Ralf Beard Dictated Date: 06/11/2025 11:08 ET Assigned Physician: Ralf Beard Reviewed and Electronically Signed By: Ralf Beard Signed Date: 06/11/2025 11:11 ET Workstation ID: [id number] Transcribed By: Self Edit Transcribed Date: 06/11/2025 11:09 ET Paola Walsh MD [facility] DXA PROCEDURES Final Resul t * (ABNORMAL) Thyroid stimulating hormone (04/30/2025 11:11 AM EDT) Only the most recent of2 resultswithin the time period is included. TSH 0.34(L) 0.40 - 4.00 mcIU/mL LAB CHEMISTRY METHOD 04/30/2025 2:53 PM EDT [facility] Blood Venous blood specimen / Unknown Venipuncture / Unknown 04/30/2025 11:11 AM EDT 04/30/2025 11:11 AM EDT us Paola Walsh MD LAB BLOOD ORDERABLES Final Res ult [facility] [address] [place] [address], [place] [phone] * Vascular US duplex lower extremity venous left (04/09/2025 1:29 PM EDT) Anatomical Region Laterality Modality Vascular, Abdomen Ultrasound 04/09/2025 1:51 PM EDT Impressions 04/09/2025 1:51 PM EDT NO LEFT LOWER EXTREMITY DEEP VENOUS THROMBOSIS. -------- FINAL REPORT -------- Dictated By: Sameera Teran Dictated Date: 04/09/2025 13:51 ET Assigned Physician: Sameera Teran Reviewed and Electronically Signed By: Sameera Teran Signed Date: 04/09/2025 13:51 ET Workstation ID: [id number] Transcribed By: Self Edit Transcribed Date: 04/09/2025 13:51 ET Narrative 04/09/2025 1:51 PM EDT Ultrasound venous duplex left lower extremity INDICATION: pain in extremities ddimer positive,leg swelling and pain TECHNIQUE: 2-D and color Doppler imaging of the left lower extremity venous vasculature with compression and augmentation maneuvers. COMPARISON: No priors available. FINDINGS: There is normal flow, compression, and augmentation from the common femoral through the popliteal vein. No focal fluid collection. Procedure Note Sameera Teran MD - 04/09/2025 Ultrasound venous duplex left lower extremity INDICATION: pain in extremities ddimer positive,leg swelling and pain TECHNIQUE: 2-D and color Doppler imaging of the left lower extremityvenous vasculature with compression and augmentation maneuvers. COMPARISON: No priors available. FINDINGS: There is normal flow, compression, and augmentation from the commonfemoral through the popliteal vein. No focal fluid collection. IMPRESSION: NO LEFT LOWER EXTREMITY DEEP VENOUS THROMBOSIS. -------- FINAL REPORT -------- Dictated By: Sameera Teran Dictated Date: 04/09/2025 13:51 ET Assigned Physician: Sameera Teran Reviewed and Electronically Signed By: Sameera Teran Signed Date: 04/09/2025 13:51 ET Workstation ID: [id number] Transcribed By: Self Edit Transcribed Date: 04/09/2025 13:51 ET us Paola Walsh MD CV VASCULAR PROCEDURES Final R esult * Magnesium (04/02/2025 2:10 PM EDT) Magnesium 2.0 1.9 - 2.6 mg/dL LAB CHEMISTRY METHOD 04/02/2025 7:09 PM EDT [facility] Blood Venous blood specimen / Unknown Venipuncture / Unknown 04/02/2025 2:10 PM EDT 04/02/2025 2:10 PM EDT us aPola Walsh MD LAB BLOOD ORDERABLES Final Res ult [facility] [address] [place] [address], [place] [phone] * Lipid panel (03/21/2025 5:58 AM EDT) Cholesterol 136 0 - 200 mg/dL LAB CHEMISTRY METHOD 03/21/2025 7:02 AM EDT [facility] Triglycerides 96 <150 mg/dL LAB CHEMISTRY METHOD 03/21/2025 7:02 AM EDT [facility] HDL 43 33 - 92 mg/dL LAB CHEMISTRY METHOD 03/21/2025 7:02 AM EDT [facility] LDL Calculated 74 50 - 130 mg/dL LAB CHEMISTRY METHOD 03/21/2025 7:02 AM EDT [facility] VLDL Cholesterol Matias 19.2 mg/dL LAB CHEMISTRY METHOD 03/21/2025 7:02 AM EDT [facility] Comment:No established refer ence range. Blood Venous blood specimen / Unknown Venipuncture / Unknown 03/21/2025 5:58 AM EDT 03/21/2025 6:18 AM EDT us Bay Savage MD LAB BLOOD ORDERABLES Final Re sult [facility] ([facility] [address] [place] [address], [place] [phone] from Last 3 Months or Most Recently Relevant to Health Maintenance Insurance [employer] [place] MEDICARE ADVANTAGE Advance Directives * Full Code - Default (Latest Code Status on File) Date Activated Date Inactivated Comments 03/21/2025 12:38 AM 03/23/2025 6:33 PM This is orde r is used when code status has not been discussed with the patient, or code status is otherwise unknown/unconfirmed To update the patient's code status, place a code status order. Do not modify or discontinue any currently active code status orders. Care Teams Senior Instructional Designer Relationship Specialty Start Date End Date Paola Walsh MD [address] [place] [address] [address] [place] [phone] PCP - General Internal Medicine 07/09/24
== END 2025-07-01 11:55 | disposition home or self-care (01) ==
LOC: HO.HSM 10:59
PROVIDERS: PCP Internal Medicine; Visit Provider Psychiatry & Neurology Neurology
DX: I61.1 Nontraumatic intracerebral hemorrhage in hemisphere, cortical (principal)
CPT/HCPCS: 99205; G2211

== ENCOUNTER 2025-07-01 10:59 | Outpatient (REF) | payer MEDICARE, SELFPAY ==
[2025-07-02 07:03] LABS: Lyme Abs Screen <0.90 index
== END 2025-07-01 11:00 | disposition home or self-care (01) ==
LOC: HO.LAB 10:59
PROVIDERS: PCP Internal Medicine; Visit Provider Psychiatry & Neurology Neurology
DX: I16.1 Hypertensive emergency (principal); Z01.84 Encounter for antibody response examination
CPT/HCPCS: 36415; 85652; 86617; 86618; 99202

== ENCOUNTER 2025-07-30 11:49 | Outpatient (AMB) | payer MEDICARE, SELFPAY ==
--- NOTE | 2025-07-30 12:00 | MHC.OFFVIS ---
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 There were no imaging signs of amyloid angiopathy. Around the time she had the 1st MRI, her main complaint was left-sided hearing loss and a provider told her that there was some fluid in her left ear. This would suggest that maybe she was suffering from a viral illness, which could explain findings of patchy meningitis noted on her MRI. She denied that she was having any headaches at that time. Her hearing has improved though headaches have continued. Recent MRI of brain has revealed somewhat resolution of the left parietal intracerebral hemorrhage. She was reassured and educated and was advised to have maybe 1 more MRI in 3 months' time. If that would be clear, further imaging might not be needed. She is presenting for a neurology follow-up visit. She reports that her headaches are not as significant as they were previously. She has not been taking the prescribed headache medication after reading about the side effects. The patient reports losing more hearing in her right ear compared to her left, according to a recent hearing test, though she can still hear. She states her balance is alright, and she does not fall. Her bladder control is okay. Recent blood tests were normal. [facility] Medical History (Updated 07/29/25 @ 10:31 by Felice Davidson CMA) Allergic rhinitis Nontoxic uninodular goiter Hypomagnesemia Hypercholesterolemia Vitamin D deficiency Hypertension Lumbar radiculopathy Intracerebral hemorrhage Stroke Review of Systems Narrative - Neurological: Reports headaches are improved. Reports good balance and denies falls. - HEENT: Reports hearing loss, which is worse in the right ear than the left. - Genitourinary: Denies urinary incontinence. Physical Exam Neuro Other: Mental Status: Alert and oriented to person, place, and time. Normal attention. Normal spontaneous speech, fluency, and comprehension. Cranial Nerves: CN II: Visual rodriguez full to confrontation, visual acuity intact. CN III, IV, : Pupils equal, round, reactive to light and accommodation. Extraocular movements are normal. CN V: Facial sensation is normal. CN VII: Facial movements symmetrical. CN VIII: Hearing intact to bedside conversation is normal. CN IX, X: Palate elevates symmetrically. CN XI: Shoulder shrug and head turn symmetrical. CN XII: Tongue midline without atrophy or fasciculations. Extrapyramidal: Full facial expressions and blinking. No rigidity. Movements are appropriate with no tremor or abnormality. Speech: Normal; no dysarthria or tremor. Results Reviewed Results Reviewed: Laboratory Tests 07/01/25 12:27 ESR 12 Lyme Screen IgG & IgM <0.90 Assessment & Plan Assessment & Plan (1) Intracerebral hemorrhage: Comment: MR brain WO at [facility] on Mar 20, 2025: Small left post parietal acute ICH and a smaller L medial occipital chronic ICH CT brain WO at [facility] on Mar 20, 2025: Left FP hypodensity in the area of ICH seen on MRI with a tiny hyperdensity CT brain WO at [facility] on Mar 21, 2025: Hypodensity is seen but no hyperdensity MR brain WWO at [facility] on Mar 22, 2025: Subacute left parietal ICH and signs of pachymeningitis CTA brain at [facility] on Mar 21, 2025: L FP hypodensity MRI brain WO at [facility] in Jun 2025: Resolved left parietal ICH, pachymeningitis, MVD Code(s): I61.9 - Nontraumatic intracerebral hemorrhage, unspecified Category: Medical Qualifiers: Intracerebral hemorrhage etiology: nontraumatic Cerebral hemorrhage location: cerebral hemisphere, cortical portion Laterality: left Qualified Code(s): I61.1 - Nontraumatic intracerebral hemorrhage in hemisphere, cortical Plan 79 yo woman with an unknown process causing small left posterior parietal ICH and a smaller left medial occipital chronic ICH noted in Mar. ?amyloid but there were no visible puctate lesions on gradiant echo. For now she was not having any symptoms other than mild hearing impairment. I informed the patient that her recent blood tests were normal. We discussed that since her headaches are not significant, refraining from medication is the best policy. I advised that no action is needed at present. I recommended she schedule a follow-up appointment in six months. I advised her that if she feels fine at that time, she can cancel the appointment, but if she feels she needs to be seen earlier, she should call to schedule an earlier visit. Coding Level of Care Code Est Pt Level 4 (98506) Diagnoses Nontraumatic cortical hemorrhage of left cerebral hemisphere I61.1 Intracerebral hemorrhage etiology: nontraumatic Cerebral hemorrhage location: cerebral hemisphere, cortical portion Laterality: left
--- OUTSIDE RECORDS SUMMARY | 2025-07-30 15:40 | XMS_ITS | Encounter Summary ---
Author Organization [facility] Address [address] [place] [address] Care Team Providers Care Processing Analyst Name Role Phone Paola Walsh MD Primary Care Provider [phone] Encounter Details Date Type Department Care Team ([facility] st Contact Info) Description 06/11/2025 Results Follow-Up Internal Medicine - [place] [address] [facility] [address] [place] [phone] Paola Walsh MD [address] [place] [address] Social History Tobacco Use Types [...] care for your loved ones. For example, residential child care counselor or elderly care for an older adult? [...] Care Team (Late st Contact Info) Description 08/20/2025 9:30 AM EST Ancillary Procedure [facility] [address] [facility] [address] [place] [address] 09/03/2025 1:00 PM EST Office Visit Internal Medicine - [place] [address] [facility] [address] [place] [address] Paola Walsh MD [address] [place] [phone] 09/24/2025 9:00 AM EST Ancillary Procedure Pulmonology - [place] [address] [phone] 09/24/2025 10:00 AM EST Office Visit Pulmonology - [place] [address] [phone] Angela France MD [address] [place] [phone] documented as of this encounter Visit Diagnoses Not on filedocumented in this encounter Additional Health Concerns Infection Onset Date Last Indicated Resolved Time Respiratory Rule-Out 06/29/2025 06/29/2025 025 5:57 PM EST COVID-19 Rule-Out 06/29/2025 06/29/2025 06/29/2025 5:57 PM EST Assessment Noted Time PHQ-9 Depression Total Score: 4 03/10/20 25 8:14 AM EDT documented as of this encounter Care Teams Processing Analyst Relationship Specialty Start Date End Date Paloa Walsh MD [address] [phone] PCP - General Internal Medicine 07/09/24 documented as of this encounter
--- OUTSIDE RECORDS SUMMARY | 2025-07-30 15:41 | XMS_ITS | Clinical Summary ---
Author Organization [facility] Address [address] [place] [address] Phone Care Team Providers Care Activities Volunteer Name Role Phone Paola Walsh MD Primary Care Provider [phone] Allergies Active Allergy Reactions Criticality Noted Date [...] day. 90 tablet 2 05/21/20 25 Active Rocklatan 0.02-0.005 % drops PLACE 1 DROP IN EACH EYE AT BEDTIME 05/22/20 Active timolol (TIMOPTIC) 0.5 % ophthalmic solution INSTILL ONE DROP INTO THE RIGHT EYE IN THE MORNING 06/10/20 Active montelukast (SINGULAIR) 10 mg tablet Take 1 tablet (10 mg total) by mouth at bedtime. 30 each 07/24/20 25 026 Active fluticasone propion-salmet Rosalinda (Wixela Inhub) 500-50 mcg/dose diskus inhaler Inhale 1 puff by mouth 2 (two) times a day. Rinse mouth with water after use to reduce aftertaste and incidence of candidiasis. Do not swallow. 1 each 07/24/20 25 026 Active fluticasone propionate (FLONASE) 50 mcg/actuation nasal spray Administer 1 spray into each nostril 1 (one) time each day. Shake gently. Before first use, prime pump. After use, clean tip and replace cap. 16 g 07/24/20 25 026 Active azithromycin (ZITHROMAX) 250 mg tablet Take 2 tablets (500 mg total) by mouth 1 (one) time each day for 1 day, THEN 1 tablet (250 mg total) 1 (one) time each day for 4 days. 6 each 06/30/20 25 025 predniSONE (DELTASONE) 20 mg tablet Take 1 tablet (20 mg total) by mouth 2 (two) times a day for 4 days. See instructions. 8 tablet 06/30/20 25 025 fluticasone propionate (FLONASE) 50 mcg/actuation nasal spray Administer 1 spray into each nostril 1 (one) time each day. Shake gently. Before first use, prime pump. After use, clean tip and replace cap. 16 g 06/30/20 25 025 Discontinued(Re order) Wixela Inhub 250-50 mcg/dose diskus inhaler Inhale 1 puff by mouth 2 (two) times a day. 025 Discontinued Wixela Inhub 250-50 mcg/dose diskus inhaler INHALE ONE PUFF BY MOUTH TWICE A DAY 60 each 11 07/01/20 25 025 Discontinued Active Problems Problem Noted Date Diagnosed Date Shortness of breath 07/24/2025 Assessment & Plan (07/24/2025 4:50 PM EST): Orders: ECG 12 lead Exercise nuclear stress test with myocardial perfusion; Future Hemorrhagic stroke 03/21/2025 Assessment & Plan (04/30/2025 11:17 AM EDT): [...] Encounters Date Type Department Care Team Description 07/24/2025 1:30 PM EST Office Visit [facility] - [address] [facility] [address] [place] [phone] Ulises Rossi MD Elevated troponin (Primary Dx); Shortness of breath; TA (dyspnea on exertion) 07/24/2025 8:30 AM EST Office Visit Pulmonology - [place] [address] [facility] [address] [place] [phone] Angela France MD Severe persistent asthma, unspecified whether complicated ([facility] V28) (Primary Dx) 06/30/2025 8:45 AM EST Office Visit Neurosurgery [facility] 175 [facility] [address] [place] [phone] Nhan Samaniego MD Hemorrhagic stroke ([facility] V24, [facility] V28) (Primary Dx) 06/29/2025 2:16 PM EST - 06/30/2025 2:55 AM EST Emergency [facility] Emergency [address] [place] [phone] Ernestina Zheng MD Landry, Jonathan P, MD Shortness of breath (Primary Dx); Moderate persistent asthma with exacerbation; Chronic cough; Itching sensation of throat; Globus sensation; SOWMYA (obstructive sleep apnea); Elevated troponin; COPD exacerbation ([facility] V24, [facility] V28) Discharge Disposition: Home or Self Care 06/23/2025 9:58 AM EST - 06/23/2025 11:59 PM EST Hospital Encounter [address] [phone] Hemorrhagic stroke ([facility] V24, [facility] V28) Discharge Disposition: Home or Self Care 06/11/2025 9:15 AM EDT - 06/11/2025 11:59 PM EDT Hospital Encounter [facility] Bone Density [address] [place] [phone] Postmenopausal state Discharge Disposition: Home or Self Care 06/11/2025 Results Follow-Up Internal Medicine - [address] [phone] Paola Walsh MD 05/21/2025 12:00 PM EDT Office Visit Internal Medicine - [address] [phone] Paola Walsh MD Primary hypertension (Primary Dx); Hemorrhagic stroke ([facility] V24, [facility] V28); Hypothyroidism (acquired) 04/30/2025 10:30 AM EDT Office Visit Internal Medicine - [address] [place] [address] Paola Walsh MD Primary hypertension (Primary Dx); Hypothyroidism (acquired); Hemorrhagic stroke ([facility] V24, [facility] V28); Hypomagnesemia; Encounter for subsequent annual wellness visit (AWV) in Medicare patient from Last 3 Months Immunizations Immunization Administration Dates Next Due Pfizer SARS-CoV-2 COVID-19, mRNA, LNP-S, preservative free 12/23/2020,12/02/2020 Surgical History Surgery Date Site/Laterality Comments TONSILLECTOMY PROCEDURE: HISTORICAL TONSILLECTOMY HYSTERECTOMY PROCEDURE: HISTORICAL HYSTERECTOMY SHOULDER SURGERY PROCEDURE: HISTORICAL SHOULDER SURGERY Medical History Medical History Date Comments Asthma Bleeding in brain ([facility] V24, [facility] V28) initially found last year Hyperlipidemia Hypertension COPD (chronic obstructive pu lmonary disease) ([facility] V24, [facility] V28) GERD (gastroesophageal reflux disease) Hypothyroidism Lumbar radiculopathy Social History Tobacco Use Types Packs/Day Years [...] care for your loved ones. 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 [...] on file Sexual Orientation Not on file Last Filed Vital Signs Vital Sign Reading Time Taken Comments Blood Pressure 166/82 07/24/2025 1:34 PM EST Pulse 87 07/24/2025 1:34 PM EST Temperature 36.3 C (97.3 F) 07/24/2025 8:28 AM EST Respiratory Rate 16 07/24/2025 8:28 AM EST Oxygen Saturation 96% 07/24/2025 1:34 PM EST Inhaled Oxygen Concentration - - Weight 76.2 kg (168 lb) 07/24/2025 1:34 PM EST Height 152.4 cm (5') 07/24/2025 1:34 PM EST Body Mass Index 32.81 07/24/2025 1:34 PM EST Plan of Treatment Upcoming Encounters Date Type Department Care Team (Late st Contact Info) Description 08/20/2025 9:30 AM EST Ancillary Procedure [facility] - [address] [place] [address] 09/03/2025 1:00 PM EST Office Visit Internal Medicine - [place] 175 [facility] [address] [place] [address] Paola Walsh MD [address] [place] [phone] 09/24/2025 9:00 AM EST Ancillary Procedure Pulmonology - [place] [address] [phone] 09/24/2025 10:00 AM EST Office Visit Pulmonology - [place] [address] [phone] Angela France MD [address] [place] [phone] Health Maintenance Due Date Last Done Comments DTaP,Tdap,and Td Vaccines (1 - Tdap) 1964 Pneumococcal Vaccine: 50+ Years (1 of 2 - PCV) 1965 Zoster Vaccines (1 of 2) 1996 RSV Immunization Adult Patients (1 - 1-dose 75+ series) 2021 Hepatitis C Screening 07/22/2022 COVID-19 Vaccine ( - season) 2025 01/28/2022, 12/23/2020, 12/02/2020 Influenza [...] Procedure Name Priority Date/Time Associated Diagnosis Comments ECG 12-LEAD Routine 07/24/2025 1:39 PM EST Shortness of breath EXTERNAL CLINICAL LAB 07/01/2025 EXTERNAL CLINICAL LAB 07/01/2025 D-DIMER STAT 06/30/2025 12:34 AM EST ECG [...] 11:11 AM EDT Primary hypertension Hypothyroidism (acquired) LIPID PANEL Routine 03/21/2025 5:58 AM EDT from Last 3 Months or Most Recently Relevant to Health Maintenance Results * External clinical lab (07/01/2025) Only the most recent of2 resultswithin the time period is included. us Provider [facility] LAB BLOOD ORDERABLES Fin al Result * (ABNORMAL) D-dimer, quantitative (06/30/2025 12:34 AM EST) D-Dimer, Quant (D-DU) 327(H) <=230 ng/mL DDU LAB COAGULATION METHOD 06/30/2025 1:02 AM EST [facility] Blood Venous blood specimen / Unknown Venipuncture / Unknown 06/30/2025 12:34 AM EST 06/30/2025 12:48 AM EST [facility] - 06/30/2025 1:02 AM EST D-Dimer <230 ng/mL (D-Dimer units) is the threshold for exclusion of DVT/PE. D-Dimer may be elevated in: Critically ill, severely infected, trauma patients, DIC, acute CVA, acute OH, unstable angina, AF, old age, , and smoking. D-Dimer may be decreased with: Initiation of heparin therapy and oral anticoagulants. Nimesh Yeh MD LAB BLOOD ORDERABLES Final Result Performing Organization Address [facility]/ZIP Co de Phone Number [facility] [address] [place] [address], [place] [phone] * ECG-Annotated (06/30/2025) Only the most recent of2 resultswithin the time period is included. [facility] ECG ORDERABLES Final Result * (ABNORMAL) Troponin I high sensitivity (06/29/2025 11:23 PM EST) Only the most recent of3 resultswithin the time period is included. [facility] High Sensitivity Troponin I 77(H) <=54 ng/L LAB CHEMISTRY METHOD 06/29/2025 11:49 PM EST [facility] Blood Venous blood specimen / Unknown Venipuncture / Unknown 06/29/2025 11:23 PM EST 06/29/2025 11:27 PM EST Narrative [facility] - 06/29/2025 11:49 PM EST High levels of biotin in samples may falsely decrease hsTroponin values. Use caution when interpreting hsTroponin results in patients taking biotin who exhibit renal impairment (eGFR <60) or in patients taking more than 20 mg/day of biotin. Nimesh Yeh MD LAB BLOOD ORDERABLES Final Result Performing Organization Address [facility] Co de Phone Number [facility] [address] [place] [address], [place] [phone] * B-type natriuretic peptide (06/29/2025 11:23 PM EST) BNP 86 <=100 pcg/mL LAB CHEMISTRY METHOD 06/29/2025 11:58 PM EST [facility] Blood Venous blood specimen / Unknown Venipuncture / Unknown 06/29/2025 11:23 PM EST 06/29/2025 11:27 PM EST us Nimesh Yeh MD LAB BLOOD ORDERABLES Final Result [facility] [address] [place] [address], [place] [phone] * CT Neck Soft Tissue w Contrast [...] LAB MICROBIOLOGY METHOD 06/29/2025 5:57 PM EST [facility] Influenza A PCR Not Detected Not Detected LAB MICROBIOLOGY METHOD 06/29/2025 5:57 PM EST [facility] Influenza B PCR Not Detected Not Detected LAB MICROBIOLOGY METHOD 06/29/2025 5:57 PM EST [facility] Coronavirus 229E Not Detected Not Detected LAB MICROBIOLOGY METHOD 06/29/2025 5:[address] [facility] Coronavirus HKU1 Not Detected Not Detected LAB MICROBIOLOGY METHOD 06/29/2025 5:[address] [facility] Coronavirus OC43 Not Detected Not Detected LAB MICROBIOLOGY METHOD 06/29/2025 5:[address] [facility] Coronavirus NL63 Not Detected Not Detected LAB MICROBIOLOGY METHOD 06/29/2025 5:57 PM EST [facility] Parainfluenza Virus 1 Not Detected Not Detected LAB MICROBIOLOGY METHOD 06/29/2025 5:[address] [facility] Parainfluenza Virus 2 Not Detected Not Detected LAB MICROBIOLOGY METHOD 06/29/2025 5:[address] [facility] Parainfluenza Virus 3 Not Detected Not Detected LAB MICROBIOLOGY METHOD 06/29/2025 5:[address] [facility] Parainfluenza Virus 4 Not Detected Not Detected LAB MICROBIOLOGY METHOD 06/29/2025 5:[address] [facility] RSV PCR Not Detected Not Detected LAB MICROBIOLOGY METHOD 06/29/2025 5:[address] [facility] Human Metapneumovirus A and B Not Detected Not Detected LAB MICROBIOLOGY METHOD 06/29/2025 5:57 PM EST [facility] Rhinovirus/Entero virus Not Detected Not Detected LAB MICROBIOLOGY METHOD 06/29/2025 5:57 PM EST [facility] Bordetella pertussis Not Detected Not Detected LAB MICROBIOLOGY METHOD 06/29/2025 5:57 PM EST [facility] Bordetella parapertussis Not Detected Not Detected LAB MICROBIOLOGY METHOD 06/29/2025 5:57 PM EST [facility] Mycoplasma pneumo by PCR Not Detected Not Detected LAB MICROBIOLOGY METHOD 06/29/2025 5:57 PM EST [facility] Chlamydia pneumoniae Not Detected Not Detected LAB MICROBIOLOGY METHOD 06/29/2025 5:57 PM EST [facility] SARS COV-2 Not Detected Not Detected LAB MICROBIOLOGY METHOD 06/29/2025 5:57 PM EST [facility] Swab Both anterior nares / Unknown Non-blood Collection / Unknown 06/29/2025 3:47 PM EST 06/29/2025 4:51 PM EST [facility] - 06/29/2025 5:57 PM EST Testing was performed using the Intrusice Respiratory Pathogen PCR Assay. All results must [...] MICROBIOLOGY - GENERAL ORDER NARESH Final Result [facility] [address] [place] [address], * (ABNORMAL) CBC (06/29/2025 3:45 PM EST) WBC 7.8 4.8 - 10.8 K/mcL LAB HEMETOLOGY METHOD 06/29/2025 5:[address] [facility] RBC 4.60 3.80 - 4.80 M/mcL LAB HEMETOLOGY METHOD 06/29/2025 5:[address] [facility] Hemoglobin 13.2 11.5 - 16.0 g/dL LAB HEMETOLOGY METHOD 06/29/2025 5:[address] [facility] Hematocrit 40.1 35.0 - 47.0 % LAB HEMETOLOGY METHOD 06/29/2025 5:[address] [facility] MCV 87.7 79.0 - 98.0 FL LAB HEMETOLOGY METHOD 06/29/2025 5:[address] [facility] MCH 28.9 27.0 - 32.0 pcg LAB HEMETOLOGY METHOD 06/29/2025 5:[address] [facility] MCHC 32.9 32.0 - 37.0 g/dL LAB HEMETOLOGY METHOD 06/29/2025 5:[address] [facility] RDW 13.9 11.0 - 15.0 % LAB HEMETOLOGY METHOD 06/29/2025 5:[address] [facility] Platelets 222 130 - 400 K/mcL LAB HEMETOLOGY METHOD 06/29/2025 5:[address] [facility] MPV 12.0(H) 7.0 - 11.0 FL LAB HEMETOLOGY METHOD 06/29/2025 5:[address] [facility] NRBC 0.0 <1.0 % LAB HEMETOLOGY METHOD 06/29/2025 5:[address] [facility] NRBC Absolute 0.00 <0.10 K/mcL LAB HEMETOLOGY METHOD 06/29/2025 5:[address] [facility] Blood Venous blood specimen / Unknown Venipuncture / Unknown 06/29/2025 3:45 PM EST 06/29/2025 4:53 PM EST us Ernestina Zheng MD LAB BLOOD ORDERABLES Final Resul t [facility] [address] [place] [address], * Basic Metabolic Panel (BMP) (06/29/2025 3:45 PM EST) Sodium 141 133 - 145 mmol/L LAB CHEMISTRY METHOD 06/29/2025 6:[address] [facility] Potassium 4.6 3.5 - 5.5 mmol/L LAB CHEMISTRY METHOD 06/29/2025 6:[address] [facility] Comment:Hemolysis present Chloride 106 96 - 110 mmol/L LAB CHEMISTRY METHOD 06/29/2025 6:[address] [facility] CO2 31 21 - 32 mmol/L LAB CHEMISTRY METHOD 06/29/2025 6:[address] [facility] Anion Gap 4 3 - 11 LAB CHEMISTRY METHOD 06/29/2025 6:[address] [facility] Glucose 83 70 - 100 mg/dL LAB CHEMISTRY METHOD 06/29/2025 6:[address] [facility] BUN 17 5 - 25 mg/dL LAB CHEMISTRY METHOD 06/29/2025 6:[address] [facility] Creatinine 0.81 0.50 - 1.10 mg/dL LAB CHEMISTRY METHOD 06/29/2025 6:[address] [facility] eGFR 74 >=60 mL/min/1. 73m2 LAB CHEMISTRY METHOD 06/29/2025 6:[address] [facility] Comment:Calculation based on the Chronic Kidney Disease Epidemiology Collaboration (CKD-EPI) equation refit without adjustment for race. BUN/Creatinine Ratio 21.0 LAB CHEMISTRY METHOD 06/29/2025 6:[address] [facility] Calcium 9.7 8.5 - 10.5 mg/dL LAB CHEMISTRY METHOD 06/29/2025 6:03 PM EST [facility] Blood Venous blood specimen / Unknown Venipuncture / Unknown 06/29/2025 3:45 PM EST 06/29/2025 4:53 PM EST us Ernestina Zheng MD LAB BLOOD ORDERABLES Final Resul t [facility]) [facility] [address] [place] [address], [place] [phone] * XR Chest 1 View (06/29/2025 3:26 [...] Signed Date: 06/29/2025 15:55 ET Workstation ID: [id number] Transcribed By: Self Edit Transcribed Date: 06/29/2025 [...] Sameera Teran Reviewed and Electronically Signed By: aSmeera Teran Signed Date: 06/29/2025 15:55 ET Workstation ID: [id number] Transcribed By: Self Edit Transcribed Date: 06/29/2025 15:55 ET Ernestina Zheng MD IMG XR PROCEDURES Final Result * 12-Lead ECG (06/29/2025 3:17 PM EST) Ventricular Rate ECG 81 BPM GEMUSE Atrial Rate 81 BPM GEMUSE P-R Interval 148 ms GEMUSE QRS Duration 80 ms GEMUSE Q-T Interval 370 ms GEMUSE QTc 429 ms GEMUSE P Wave [place] 37 degrees GEMUSE R [place] 15 degrees GEMUSE T [place] 42 degrees GEMUSE ECG Interpretation Normal sinus rhythm Minimal voltage criteria for LVH, may be normal variant ( Sokolow-Vallejo ) Nonspecific T wave abnormality Abnormal ECG When compared with ECG of 20-MAR-2025 16:58, QT has shortened Confirmed by RAZA TURNER ([id number]) on 06/29/2025 11:49:03 PM GEMUSE 06/29/2025 3:17 PM EST 06/29/2025 11:49 PM EST Ernestina Zheng MD ECG ORDERABLES Final Result [...] Signed Date: 06/23/2025 13:33 ET Workstation ID: [id number] Transcribed By: Self Edit Transcribed Date: 06/23/2025 [...] Signed Date: 06/23/2025 13:33 ET Workstation ID: [id number] Transcribed By: Self Edit Transcribed Date: 06/23/2025 [...] probability of hip fracture of 0.7%. Code 05946 -------- FINAL REPORT -------- Dictated By: Ralf Beard Dictated Date: 06/11/2025 11:08 ET Assigned Physician: Ralf Beard Reviewed and Electronically Signed By: Ralf Beard Signed Date: 06/11/2025 11:11 ET Workstation ID: [id number] Transcribed By: Self Edit Transcribed Date: 06/11/2025 [...] density of the femurs bilaterally is 1.055 gm/iz9bctmt is 105% of that of young normals [...] probability of hip fracture of 0.7%. Code 42472 -------- FINAL REPORT -------- Dictated By: Ralf Beard Dictated Date: 06/11/2025 11:08 ET Assigned Physician: Ralf Beard Reviewed and Electronically Signed By: Ralf Beard Signed Date: 06/11/2025 11:11 ET Workstation ID: [id number] Transcribed By: Self Edit Transcribed Date: 06/11/2025 11:09 ET us Paola Walsh MD IMG DXA PROCEDURES Final Resul t * (ABNORMAL) Thyroid stimulating hormone (04/30/2025 11:11 AM EDT) Pathologist [facility] TSH 0.34(L) 0.40 - 4.00 mcIU/mL LAB CHEMISTRY METHOD 04/30/2025 2:53 PM EDT [facility] Blood Venous blood specimen / Unknown Venipuncture / Unknown 04/30/2025 11:11 AM EDT 04/30/2025 11:11 AM EDT us Paola Walsh MD LAB BLOOD ORDERABLES Final Res ult [facility] [address] [place] [address], [place] [phone] * Lipid panel (03/21/2025 5:58 AM EDT) [facility] Cholesterol 136 0 - 200 mg/dL LAB CHEMISTRY METHOD 03/21/2025 7:02 AM EDT [facility] Triglycerides 96 <150 mg/dL LAB CHEMISTRY METHOD 03/21/2025 7:02 AM EDT [facility] HDL 43 33 - 92 mg/dL LAB CHEMISTRY METHOD 03/21/2025 7:02 AM EDT [facility] LDL Calculated 74 50 - 130 mg/dL LAB CHEMISTRY METHOD 03/21/2025 7:02 AM EDT [facility] VLDL Cholesterol Matias 19.2 mg/dL LAB CHEMISTRY METHOD 03/21/2025 7:02 AM EDT [facility] Comment:No established refer ence range. Blood Venous blood specimen / Unknown Venipuncture / Unknown 03/21/2025 5:58 AM EDT 03/21/2025 6:18 AM EDT us Bay Saavge MD LAB BLOOD ORDERABLES Final Re sult [facility] [address] [place] [address], [place] [phone] from Last 3 Months or Most Recently [...] currently active code status orders. Care Teams Activities Volunteer Relationship Specialty Start Date End Date Paola Walsh MD [address] [place] [phone] PCP - General Internal Medicine 07/09/24
== END 2025-07-30 12:05 | disposition home or self-care (01) ==
LOC: HO.HSM 11:50
PROVIDERS: PCP Internal Medicine; Visit Provider Psychiatry & Neurology Neurology
DX: I61.1 Nontraumatic intracerebral hemorrhage in hemisphere, cortical (principal)
CPT/HCPCS: 99214

== ENCOUNTER → 2025-07-30 11:49 | Outpatient (BNVA) | payer MEDICARE, SELFPAY | PROVIDERS: PCP Internal Medicine; Visit Provider Psychiatry & Neurology Neurology | DX: I61.1 Nontraumatic intracerebral hemorrhage in hemisphere, cortical (principal) | CPT/HCPCS: 99212 ==